=== PATIENT | female | born 1940 | race Caucasian/White ===

== ENCOUNTER 2016-12-27 13:08 | Inpatient (IN) | payer MEDICARE, OTHER ==
--- NOTE | 2016-12-27 13:23 | ER Document Report ---
ED Medical Screen (RME) - General Stated Complaint: STOMACH PAIN Notes: 76 yo female c/o left lower abdominal pain. pt has hx/o diverticulitis. c/o pain x 1 week but got worse 3 days ago. no n/v. + diarrhea. not tolerating po. abdomen soft, diffuse tenderness with guarding. pt is hypotensive, 79/46 TRAVEL OUTSIDE OF THE [place] IN LAST 30 DAYS: No
[2016-12-27 13:56] LABS: ABSOLUTE LYMPHOCYTES (AUTO) 1.2 10^3/uL (0.5-4.7); ABSOLUTE MONOCYTES (AUTO) 0.9 10^3/uL (0.1-1.4); ABSOLUTE NEUT (AUTO) 13.9 10^3/uL (1.7-8.2); BASOPHILS % (AUTO) 0.3 % (0-2); EOSINOPHILS % (AUTO) 0.2 % (0-6); HEMATOCRIT 43.1 % (36.0-47.0); HEMOGLOBIN 14.7 g/dL (12.0-15.5); LYMPHOCYTES % (AUTO) 7.3 % (13-45); MEAN CORPUSCULAR HEMOGLOBIN 29.5 pg (27.0-33.4); MEAN CORPUSCULAR HGB CONC 34.1 g/dL (32.0-36.0); MEAN CORPUSCULAR VOLUME 86 fl (80-97); MONOCYTES % (AUTO) 5.5 % (3-13); RED BLOOD COUNT 4.98 10^6/uL (3.72-5.28); RED CELL DISTRIBUTION WIDTH 14.4 % (11.5-14.0); SEGMENTED NEUTROPHILS % (AUTO) 86.7 % (42-78); WHITE BLOOD COUNT 16.1 10^3/uL (4.0-10.5)
[2016-12-27 14:15] LABS: ALANINE AMINOTRANSFERASE 31 U/L (9-52); ALBUMIN 4.2 g/dL (3.5-5.0); ALKALINE PHOSPHATASE 85 U/L (38-126); ANION GAP 16 (5-19); ASPARTATE AMINO TRANSFERASE 23 U/L (14-36); BILIRUBIN,TOTAL 1.4 mg/dL (0.2-1.3); BLOOD UREA NITROGEN 16 mg/dL (7-20); CALCIUM 10.1 mg/dL (8.4-10.2); CARBON DIOXIDE 27 mmol/L (22-30); CHLORIDE 95 mmol/L (98-107); CREATININE RESULT 1.28 mg/dL (0.52-1.25); GLUCOSE 121 mg/dL (75-110); LIPASE 60.7 U/L (23-300); POTASSIUM 3.8 mmol/L (3.6-5.0); SODIUM 138.1 mmol/L (137-145); TOTAL PROTEIN 7.5 g/dL (6.3-8.2)
[2016-12-27] MEDS ORDERED: NORMAL SALINE 1000 ML 1,000 ML IV ONE (14:26)
--- NOTE | 2016-12-27 14:27 | ER Document Report ---
ED General - General Time seen by provider: 14:30 Mode of Arrival: Wheelchair Information source: Patient, Parent TRAVEL OUTSIDE OF THE [place] IN LAST 30 DAYS: No - HPI Onset: Other - see HPI notes Associated symptoms: Diarrhea. denies: Nausea, Vomiting <NIKO MERCER - Last Filed: 12/27/16 20:10> <FRANCISCO MACIEL - Last Filed: 01/03/17 22:39> - General Chief Complaint: Abdominal Pain Stated Complaint: STOMACH PAIN Notes: Patient is a 76-year-old female presents to the emergency department with complaints of abdominal pain. Patient states that her pain started about 2-3 days ago. Patient states she has a history of diverticulitis which is waxing and waning; patient states this type of pain is different from her diverticulitis. Patient states her pain is in left side of her abdomen and goes into the middle of her abdomen. Patient also complains of some diarrhea. Patient states that she takes medications for hypertension however her blood pressure is very hypotensive today. Patient states she has had a lack of appetite and fluids. Patient has history of appendectomy, cholecystectomy, hysterectomy, and partial removal of her small intestine due to a bacterial infection with a blockage; patient states the surgery was done about 5 years ago in [place]. (NIKO MERCER) - Related Data Allergies/Adverse Reactions: codeine Allergy (Verified 12/27/16 13:22) pseudoephedrine [From Sudafed] Allergy (Verified 12/27/16 13:22) Home Medications: Current Home Medications Atenolol 50 mg PO DAILY 12/28/16 [History] Cetirizine HCl [Zyrtec] 10 mg PO DAILY PRN 12/28/16 [History] Cyanocobalamin (Vitamin B-12) [Vitamin B-12 500 mcg Tablet] 500 mcg PO DAILY 07/08 [History] Duloxetine HCl [Cymbalta] 60 mg PO DAILY 12/28/16 [History] Ezetimibe [Zetia 10 mg Tablet] 10 mg PO DAILY 12/28/16 [History] Gabapentin [Neurontin] 800 mg PO TID 12/28/16 [History] Hydrochlorothiazide [Hydrodiuril 12.5 mg Capsule] 12.5 mg PO DAILY 12/28/16 [ History] Ibuprofen [Motrin 600 mg Tablet] 600 mg PO TID PRN 12/28/16 [History] Levothyroxine Sodium [Synthroid] 137 mcg PO DAILY 12/28/16 [History] Losartan Potassium [Cozaar 100 mg Tablet] 100 mg PO DAILY 12/28/16 [History] Omeprazole 40 mg PO DAILY PRN 12/28/16 [History] Simvastatin [Zocor 20 mg Tablet] 20 mg PO DAILY 12/28/16 [History] Past Medical History - General Information source: Patient, Relative - spouse - Social History Smoking Status: Current Every Day Smoker Family History: None Patient has suicidal ideation: No Patient has homicidal ideation: No - Past Medical History Cardiac Medical History: Reports: Hx Hypertension Musculoskeltal Medical History: Reports Other - Neuropathy Past Surgical History: Reports: Hx Appendectomy, Hx Bowel Surgery - 27 inches of the small intestine was removed due to bacterial infection, Hx Cholecystectomy, Hx Hysterectomy <NIKO MERCER - Last Filed: 12/27/16 20:10> Review of Systems - Review of Systems Constitutional: No symptoms reported EENT: No symptoms reported Cardiovascular: No symptoms reported Respiratory: No symptoms reported Gastrointestinal: See HPI, Abdominal pain, Diarrhea, Poor appetite, Poor fluid intake. denies: Nausea, Vomiting Genitourinary: No symptoms reported Female Genitourinary: No symptoms reported Musculoskeletal: No symptoms reported Skin: No symptoms reported Hematologic/Lymphatic: No symptoms reported Neurological/Psychological: No symptoms reported -: Yes All other systems reviewed and negative <NIKO MERCER - Last Filed: 12/27/16 20:10> Physical Exam - Vital signs Interpretation: Hypotensive - General General appearance: Alert, Other - Appears uncomfortable In distress: Mild - HEENT Head: Normocephalic, Atraumatic Eyes: Normal Pupils: PERRL Mucous membranes: Moist - Respiratory Respiratory status: No respiratory distress Chest status: Nontender Breath sounds: Normal Chest palpation: Normal - Cardiovascular Rhythm: Regular Heart sounds: Normal auscultation Murmur: No - Abdominal Inspection: Normal - no palpable bruits Distension: No distension Bowel sounds: Hypoactive - Diminished bowel sounds Tenderness: Tender - Mild tenderness to the lower abdomen no rebound, no guarding, no rigidity Organomegaly: No organomegaly - Back Back: Normal, Nontender - Extremities General upper extremity: Normal inspection, Normal ROM, Normal strength General lower extremity: Normal inspection, Normal ROM, Normal strength, Other - good perfusion, bilateral equal pedis pulses - Neurological Neuro grossly intact: Yes Cognition: Normal Orientation: AAOx4 Romance Coma Scale Eye Opening: Spontaneous Best Coma Scale Verbal: Oriented Best Coma Scale Motor: Obeys Commands Romance Coma Scale Total: 15 Speech: Normal - Psychological Associated symptoms: Normal affect, Normal mood - Skin Skin Temperature: Warm Skin Moisture: Dry <NIKO MERCER - Last Filed: 12/27/16 20:10> Course - Laboratory Result Diagrams: 12/27/16 13:35 12/27/16 13:35 <NIKO MERCER - Last Filed: 12/27/16 20:10> - Laboratory Result Diagrams: 12/30/16 06:18 12/30/16 06:18 <FRANCISCO MACIEL - Last Filed: 01/03/17 22:39> - Re-evaluation Re-evalutation: 12/27/16 14:43 I personally performed the services described in the documentation, reviewed and edited the documentation which was dictated to my scribe in my presence, and it accurately records my words and actions. Patient immediately seen and assessed at the bedside for lower abdominal pain hypotensive in the triage area. Blood pressure at the bedside is 92-93 significantly concerned patient has decreased bowel sounds with a history of part of her colon removed for obstruction in [place] 5-6 years ago. In addition to that patient's pain in the lower abdomen with guarding concerning for abdominal aortic aneurysm. Ordered a stat IV stat CT of the abdomen and pelvis to rule out abdominal aortic aneurysm and/or mass obstruction. 12/27/16 17:00 immediately arrived back from CT CT read is acute perforation. Patient examined at the bedside blood pressure 117/[address] Hester at 1700 was financial services consultant for surgery and is going to come see the patient. I ordered Invanz 12/27/16 18:28 Surgeon came and spoke with the patient and the family plan is to admit IV antibiotics and close observation not immediate surgical intervention (FRANCISCO MACIEL) - Vital Signs Vital signs: Temp Pulse Resp BP Pulse Ox 98.9 F 60 14 79/46 L 100 12/30/16 13:10 12/30/16 13:10 12/30/16 13:10 12/30/16 13:10 12/30/16 13:10 - Laboratory Laboratory results interpreted by me: 12/27/16 12/27/16 12/27/16 13:35 13:35 17:20 WBC 16.1 H RDW 14.4 H Seg Neutrophils % 86.7 H Lymphocytes % 7.3 L Absolute Neutrophils 13.9 H Chloride 95 L Creatinine 1.28 H Est GFR ( Amer) 49 L Est GFR (Non-Af Amer) 41 L Glucose 121 H Total Bilirubin 1.4 H Urine Protein 30 H Urine Glucose (UA) 50 H Urine Blood SMALL H Discharge <NIKO MERCER - Last Filed: 12/27/16 20:10> - Discharge Admitting Provider: Surgicalist Unit Admitted: Surgical Floor <FRANCISCO MACIEL - Last Filed: 01/03/17 22:39> - Discharge Clinical Impression: acute diverticular perforation, hypotension resolved Disposition: HOME, SELF-CARE Scribe Documentation - Scribe Written by Scribe:: Niko Mercer 12/27/16 16:45 acting as scribe for :: John <NIKO MERCER - Last Filed: 12/27/16 20:10>
[2016-12-27] MEDS ORDERED: FENTANYL CITRATE INJ/PF 100 MCG/2 ML AMPUL IV ONE (14:43)
[2016-12-27] MEDS ORDERED: ERTAPENEM SODIUM INJ 1 GM VIAL IV ONE (16:59)
[2016-12-27] MEDS ORDERED: ONDANSETRON HCL INJ/PF 4 MG/2 ML SDV IV PRN (17:35)
[2016-12-27] MEDS ORDERED: NORMAL SALINE 1000 ML 1,000 ML IV PRN (17:35)
[2016-12-27] MEDS ORDERED: HYDROMORPHONE HCL INJ/PF 2 MG/ML AMPULE IV PRN ×3 (17:44→17:49)
[2016-12-27 18:03] LABS: AMORPHOUS SEDIMENT,URINE TRACE /HPF; APPEARANCE,URINE SLIGHTLY-CLOUDY; BILIRUBIN,URINE NEGATIVE (NEGATIVE); GLUCOSE, URINE 50 mg/dL (NEGATIVE); KETONES,URINE NEGATIVE (NEGATIVE); LEUKOCYTE ESTERASE,URINE NEGATIVE (NEGATIVE); NITRITE,URINE NEGATIVE (NEGATIVE); PROTEIN,URINE 30 mg/dL (NEGATIVE); URINE SPECIFIC GRAVITY 1.038; UROBILINOGEN,URINE NEGATIVE mg/dL (<2.0)
[2016-12-27] MEDS: PIPERACILLIN SODIUM/TAZOBACTAM 3.375 GM in NORMAL SALINE 100 ML IV SCH (23:00)
[2016-12-27] MEDS: PANTOPRAZOLE SODIUM 40 MG VIAL IV SCH (23:02)
[2016-12-27] MEDS ORDERED: ATENOLOL 50 MG TABLET PO ONE (23:45)
--- NOTE | 2016-12-28 01:18 | HISTORY AND PHYSICAL E ---
History and Physical NAME: CARRI BUSH : 1940 AGE: 76Y ADMITTED: 12/27/2016 ROOM: ED60 REASON FOR ADMISSION: Abdominal pain. HISTORY OF PRESENT ILLNESS: The patient is a 76-year-old female who presents with a 3-day history of pain in the left lower quadrant. She has had pain in this region in the past which she was diagnosed clinically with diverticulitis and treated with oral antibiotics. This was many years ago. She has had a previous colonoscopy within the last 7 years which did reveal polyps. I do not have the exact report. She has not had any diarrhea or constipation but has been nauseated and not drinking any liquids today prior to admission. The patient's pain is in the left lower quadrant and does not involve any other portion of her abdomen. She has had some chills but has not measured her temperature. Because of the abdominal pain, she comes into the emergency room to be evaluated. PAST SURGICAL HISTORY: 1. Appendectomy. 2. Cholecystectomy. 3. Hysterectomy. 4. Exploratory laparotomy and partial small bowel resection secondary to obstruction. ALLERGIES: 1. TYLENOL. 2. CODEINE. 3. HYDROCODONE. 4. MORPHINE. 5. OXYCODONE. 6. PSEUDOEPHEDRINE. 7. SULFA. 8. SEPTRA. 9. SHELLFISH. CURRENT MEDICATIONS: 1. Losartan/hydrochlorothiazide. 2. Ibuprofen. 3. Cymbalta. 4. Atenolol. 5. Synthroid. 6. Gabapentin. 7. Omeprazole. 8. Cetirizine. 9. Vytorin. PAST MEDICAL HISTORY: 1. Hypertension. 2. Hypothyroidism. 3. Peripheral neuropathy. 4. Gastroesophageal reflux. 5. Degenerative joint disease. SOCIAL HISTORY: The patient lives with her . FAMILY HISTORY: Noncontributory. REVIEW OF SYSTEMS: A complete review of systems is obtained, pertinent positives are: GASTROINTESTINAL: Abdominal pain. CONSTITUTIONAL: Not feeling well and chills. A 12-point review of systems was obtained with pertinent positives discussed and all others being negative. PHYSICAL EXAMINATION: VITAL SIGNS: Temperature is 97.5. Heart rate 87. The patient's initial blood pressure was 80/45. She was given IV fluids hydrated with her blood pressure coming up to 125/68. Respiration rate 18. GENERAL: The patient is lying in bed. When she does move, she does have complaints of pain in the left lower quadrant. HEENT: Eyes nonicteric. NECK: No lymphadenopathy. HEART: Regular. LUNGS: Clear. BACK: Nontender. ABDOMEN: Soft. Tender in the left lower quadrant. She does not have any tenderness anywhere else in the abdominal area. She does have a reducible ventral hernia. EXTREMITIES: No edema or cyanosis. NEUROLOGICAL: The patient appears to be neurologically intact without any deficit. PSYCHOLOGICAL: The patient is coherent, cooperative, and appears to answer questions fully. DIAGNOSTIC DATA: White blood cell count is 16,000, platelet of 281,000. Sodium 138, creatinine 1.3, total bilirubin 1.4, glucose 121. CT scan of the abdomen and pelvis shows inflammation in the descending and proximal sigmoid colon. There is a small focus of nondependent extraluminal gas with no abscess being present. ASSESSMENT: 1. Left lower quadrant abdominal pain secondary to complicated diverticular disease with small area of perforation. I have discussed the different options with the patient including surgical options which would entail a Vaca's procedure or colostomy and a rectal stump. She did respond to fluid, is no longer hypotensive. However, I stated that my feeling is surgery may be the best option for her. The other option I think is still viable but less likely to succeed is a trial of IV antibiotics. If this should fail, then she knows that she would need to undergo a Vaca's procedure. She wishes to do a limited trial of IV antibiotics to see if she will improve on this. 2. Ventral hernia that is reducible at the current time. 3. Hypotension. She was hypotensive on admission, but currently blood pressure is fine with IV hydration. 4. Mild renal insufficiency. 5. Hypothyroidism. 6. Peripheral neuropathy. 7. Gastroesophageal reflux disease. PLAN: 1. The patient will be admitted to the hospital. 2. NPO. 3. IV fluids. 4. IV antibiotics. 5. Follow up abdominal exam. DICTATING PHYSICIAN: ANG BUTLER M.D. [id number] PHY#: [id number] ID: [id number] JOB#: [id number] ACCT: [id number] cc:ELIE KIM M.D. ANG BUTLER M.D. >
[2016-12-28] MEDS: PIPERACILLIN SODIUM/TAZOBACTAM 3.375 GM in NORMAL SALINE 100 ML IV SCH ×4 (02:39→21:11)
[2016-12-28 05:46] LABS: ABSOLUTE MONOCYTES (AUTO) 0.8 10^3/uL (0.1-1.4); ABSOLUTE NEUT (AUTO) 8.8 10^3/uL (1.7-8.2); BASOPHILS % (AUTO) 0.3 % (0-2); EOSINOPHILS % (AUTO) 0.3 % (0-6); HEMATOCRIT 37.1 % (36.0-47.0); LYMPHOCYTES % (AUTO) 9.3 % (13-45); MEAN CORPUSCULAR HEMOGLOBIN 29.4 pg (27.0-33.4); MEAN CORPUSCULAR HGB CONC 34.2 g/dL (32.0-36.0); MEAN CORPUSCULAR VOLUME 86 fl (80-97); MONOCYTES % (AUTO) 7.1 % (3-13); RED BLOOD COUNT 4.33 10^6/uL (3.72-5.28); RED CELL DISTRIBUTION WIDTH 14.1 % (11.5-14.0); WHITE BLOOD COUNT 10.6 10^3/uL (4.0-10.5)
[2016-12-28 05:47] LABS: HEMOGLOBIN 12.7 g/dL (12.0-15.5)
[2016-12-28 05:49] LABS: ALANINE AMINOTRANSFERASE 30 U/L (9-52); ALBUMIN 3.3 g/dL (3.5-5.0); ALKALINE PHOSPHATASE 76 U/L (38-126); ANION GAP 9 (5-19); ASPARTATE AMINO TRANSFERASE 22 U/L (14-36); BLOOD UREA NITROGEN 15 mg/dL (7-20); CALCIUM 8.9 mg/dL (8.4-10.2); CARBON DIOXIDE 26 mmol/L (22-30); CHLORIDE 103 mmol/L (98-107); CREATININE RESULT 0.74 mg/dL (0.52-1.25); GLUCOSE 96 mg/dL (75-110); POTASSIUM 3.6 mmol/L (3.6-5.0); TOTAL PROTEIN 5.9 g/dL (6.3-8.2)
--- NOTE | 2016-12-28 08:26 | PDOC PROGRESS REPORT ---
Subjective Progress Note for:: 12/28/16 Subjective:: Feels better. Mild left lower quadrant abdominal pain. Definitely improved. Physical Exam Vital Signs: Temp Pulse Resp BP Pulse Ox 99.5 F 96 16 124/66 96 12/28/16 05:00 12/28/16 05:00 12/28/16 05:00 12/28/16 05:00 12/28/16 05:00 Intake & Output 12/27/16 12/28/16 12/29/16 06:59 06:59 06:59 Intake Total 0 Balance 0 Weight 92.3 kg General appearance: PRESENT: no acute distress, cooperative Respiratory exam: PRESENT: clear to auscultation magi Cardiovascular exam: PRESENT: RRR GI/Abdominal exam: PRESENT: other - Soft, nondistended, very mild left lower quadrant abdominal tenderness without peritoneal signs. Extremities exam: PRESENT: other - No swelling and no tenderness Results Laboratory Results: 12/28/16 04:42 12/28/16 04:42 12/28/16 12/28/16 04:42 04:42 WBC 10.6 H RBC 4.33 Hgb 12.7 Hct 37.1 MCV 86 MCH 29.4 MCHC 34.2 RDW 14.1 H Plt Count 214 Seg Neutrophils % 83.0 H Lymphocytes % 9.3 L Monocytes % 7.1 Eosinophils % 0.3 Basophils % 0.3 Absolute Neutrophils 8.8 H Absolute Lymphocytes 1.0 Absolute Monocytes 0.8 Absolute Eosinophils 0.0 Absolute Basophils 0.0 Sodium 138.0 Potassium 3.6 Chloride 103 Carbon Dioxide 26 Anion Gap 9 BUN 15 Creatinine 0.74 Est GFR ( Amer) > 60 Est GFR (Non-Af Amer) > 60 Glucose 96 Calcium 8.9 Total Bilirubin 1.0 AST 22 ALT 30 Alkaline Phosphatase 76 Total Protein 5.9 L Albumin 3.3 L Impressions: Abdomen/Pelvis CT 12/27/16 14:42 IMPRESSION: Sigmoid diverticulitis. Suspect perforated diverticulum. Surgical consultation is recommended. Assessment & Plan - Diagnosis (1) Perforation of sigmoid colon due to diverticulitis Is this a current diagnosis for this admission?: YesPlan: Improving with conservative measures. Will try clear liquids today. Possible discharge the patient home tomorrow with by mouth antibiotics.
[2016-12-28] MEDS: PANTOPRAZOLE SODIUM 40 MG VIAL IV SCH ×2 (09:13→21:10)
[2016-12-28] MEDS: CETIRIZINE 10 MG TABLET PO SCH (09:13)
[2016-12-28] MEDS: ATENOLOL 50 MG TABLET PO SCH (09:14)
[2016-12-28] MEDS: DULOXETINE HCL 30 MG CAPSULE.DR PO SCH (09:15)
[2016-12-28] MEDS: GABAPENTIN 400 MG CAPSULE PO SCH ×3 (09:15→17:05)
[2016-12-29] MEDS: NORMAL SALINE 1000 ML 1,000 ML IV PRN (02:17)
[2016-12-29] MEDS: PIPERACILLIN SODIUM/TAZOBACTAM 3.375 GM in NORMAL SALINE 100 ML IV SCH ×4 (02:18→21:44)
[2016-12-29 05:25] LABS: ABSOLUTE EOSINOPHILS # (AUTO) 0.1 10^3/uL (0.0-0.6); ABSOLUTE LYMPHOCYTES (AUTO) 1.4 10^3/uL (0.5-4.7); ABSOLUTE MONOCYTES (AUTO) 0.7 10^3/uL (0.1-1.4); ABSOLUTE NEUT (AUTO) 7.2 10^3/uL (1.7-8.2); BASOPHILS % (AUTO) 0.2 % (0-2); EOSINOPHILS % (AUTO) 1.2 % (0-6); HEMATOCRIT 35.6 % (36.0-47.0); HEMOGLOBIN 12.4 g/dL (12.0-15.5); HGB HCT DIFFERENCE 1.6; LYMPHOCYTES % (AUTO) 15.4 % (13-45); MEAN CORPUSCULAR HEMOGLOBIN 29.5 pg (27.0-33.4); MEAN CORPUSCULAR HGB CONC 34.8 g/dL (32.0-36.0); MEAN CORPUSCULAR VOLUME 85 fl (80-97); RED BLOOD COUNT 4.21 10^6/uL (3.72-5.28); RED CELL DISTRIBUTION WIDTH 14.1 % (11.5-14.0); SEGMENTED NEUTROPHILS % (AUTO) 76.2 % (42-78); WHITE BLOOD COUNT 9.4 10^3/uL (4.0-10.5)
[2016-12-29] MEDS: ATENOLOL 50 MG TABLET PO SCH (09:18)
[2016-12-29] MEDS: CETIRIZINE 10 MG TABLET PO SCH (09:18)
[2016-12-29] MEDS: PANTOPRAZOLE SODIUM 40 MG VIAL IV SCH ×2 (09:18→21:44)
[2016-12-29] MEDS: GABAPENTIN 400 MG CAPSULE PO SCH ×3 (09:18→17:06)
[2016-12-29] MEDS: DULOXETINE HCL 30 MG CAPSULE.DR PO SCH (09:19)
--- NOTE | 2016-12-29 11:57 | PDOC PROGRESS REPORT ---
Subjective Progress Note for:: 12/29/16 Subjective:: Feeling better to day less pain , no nausea Physical Exam Vital Signs: Temp Pulse Resp BP Pulse Ox 98.6 F 69 19 138/63 H 95 12/29/16 00:34 12/29/16 00:34 12/29/16 00:34 12/29/16 00:34 12/29/16 00:34 Intake & Output 12/28/16 12/29/16 12/30/16 06:59 06:59 06:59 Intake Total 0 2120 Balance 0 2120 Weight 92.3 kg 93.3 kg GI/Abdominal exam: PRESENT: other - Tenderness left lower abdomen No rebound Results Laboratory Results: 12/29/16 04:53 12/28/16 04:42 12/29/16 04:53 WBC 9.4 RBC 4.21 Hgb 12.4 Hct 35.6 L MCV 85 MCH 29.5 MCHC 34.8 RDW 14.1 H Plt Count 238 Seg Neutrophils % 76.2 Lymphocytes % 15.4 Monocytes % 7.0 Eosinophils % 1.2 Basophils % 0.2 Absolute Neutrophils 7.2 Absolute Lymphocytes 1.4 Absolute Monocytes 0.7 Absolute Eosinophils 0.1 Absolute Basophils 0.0 Impressions: Abdomen/Pelvis CT 12/27/16 14:42 IMPRESSION: Sigmoid diverticulitis. Suspect perforated diverticulum. Surgical consultation is recommended. Assessment & Plan - Plan Summary Plan Summary: Conservative management Continue monitoring and IV antibiotics
[2016-12-30] MEDS: NORMAL SALINE 1000 ML 1,000 ML IV PRN (00:02)
[2016-12-30] MEDS: PIPERACILLIN SODIUM/TAZOBACTAM 3.375 GM in NORMAL SALINE 100 ML IV SCH ×2 (03:21→09:34)
[2016-12-30 07:26] LABS: ABSOLUTE EOSINOPHILS # (AUTO) 0.1 10^3/uL (0.0-0.6); ABSOLUTE LYMPHOCYTES (AUTO) 1.2 10^3/uL (0.5-4.7); ABSOLUTE MONOCYTES (AUTO) 0.6 10^3/uL (0.1-1.4); ABSOLUTE NEUT (AUTO) 5.7 10^3/uL (1.7-8.2); BASOPHILS % (AUTO) 0.5 % (0-2); EOSINOPHILS % (AUTO) 1.3 % (0-6); HEMATOCRIT 34.7 % (36.0-47.0); HGB HCT DIFFERENCE 1.3; LYMPHOCYTES % (AUTO) 15.8 % (13-45); MEAN CORPUSCULAR HEMOGLOBIN 29.5 pg (27.0-33.4); MEAN CORPUSCULAR HGB CONC 34.7 g/dL (32.0-36.0); MEAN CORPUSCULAR VOLUME 85 fl (80-97); MONOCYTES % (AUTO) 7.5 % (3-13); RED BLOOD COUNT 4.08 10^6/uL (3.72-5.28); RED CELL DISTRIBUTION WIDTH 14.3 % (11.5-14.0); SEGMENTED NEUTROPHILS % (AUTO) 74.9 % (42-78); WHITE BLOOD COUNT 7.6 10^3/uL (4.0-10.5)
[2016-12-30 07:48] LABS: ANION GAP 11 (5-19); BLOOD UREA NITROGEN 8 mg/dL (7-20); CARBON DIOXIDE 25 mmol/L (22-30); CHLORIDE 103 mmol/L (98-107); GLUCOSE 101 mg/dL (75-110); POTASSIUM 3.3 mmol/L (3.6-5.0); SODIUM 138.8 mmol/L (137-145)
[2016-12-30] MEDS: ATENOLOL 50 MG TABLET PO SCH (09:34)
[2016-12-30] MEDS: DULOXETINE HCL 30 MG CAPSULE.DR PO SCH (09:34)
[2016-12-30] MEDS: CETIRIZINE 10 MG TABLET PO SCH (09:34)
[2016-12-30] MEDS: GABAPENTIN 400 MG CAPSULE PO SCH (09:34)
[2016-12-30] MEDS: PANTOPRAZOLE SODIUM 40 MG VIAL IV SCH (09:34)
[2016-12-30 13:13] VITALS: BP 79/46
--- NOTE | 2016-12-30 15:48 | DISCHARGE SUMMARY E ---
Discharge Summary NAME: CARRI BUSH : 1940 AGE: 76Y ADMITTED: 12/27/2016 DISCHARGED: 12/30/2016 ADMITTING DIAGNOSIS: Acute diverticulitis with microperforation. DISCHARGE DIAGNOSIS: Acute diverticulitis with microperforation. HOSPITAL COURSE: No operative interventions were necessary. She treated conservatively with IV antibiotics and after starting the IV antibiotics, started feeling better. I have seen her the last 2 days, feeling progressively better and better. Today, the patient has no tenderness, no pain. Abdominal exam was completely benign. It resolved completely at this time. I am sending her home with p.o. antibiotics of Levaquin and Flagyl and we advised her to follow up with primary care and the surgical clinic in the office, and then to have a colonoscopy and then followed, but she may need a laparoscopic colon resection, which was discussed with the patient and explained to her. We explained to her about the importance of following up in office and also with primary care. TIME SPENT: I spent almost 30 minutes explaining the need for the surgery and the colonoscopy. More than or most of 50% of the time spent for counseling and coordinating further care. DICTATING PHYSICIAN: CUAUHTEMOC WHEATLEY M.D. [id number] PHY#: [id number] ID: [id number] JOB#: [id number] ACCT: [id number] cc:Ben SHOEMAKER M.D. TRINA DEAL, FNP > [facility]
== END 2016-12-30 14:04 | disposition home or self-care (01) | DRG 392 ==
LOC: ER 13:08 → EH 17:35 → UNDOADMIN 18:17 → EH 18:17 → 5 12-28 01:35
PROVIDERS: ATTEND Colon & Rectal Surgery
DX: K57.20 Diverticulitis of large intestine with perforation and abscess without bleeding (principal); I10 Essential (primary) hypertension; M19.90 Unspecified osteoarthritis, unspecified site; K21.9 Gastro-esophageal reflux disease without esophagitis; G62.9 Polyneuropathy, unspecified; E03.9 Hypothyroidism, unspecified; K43.9 Ventral hernia without obstruction or gangrene; I95.9 Hypotension, unspecified; Z86.010 Personal history of colon polyps; Z90.49 Acquired absence of other specified parts of digestive tract; Z90.710 Acquired absence of both cervix and uterus; Z88.6 Allergy status to analgesic agent; Z88.2 Allergy status to sulfonamides; Z91.013 Allergy to seafood; Z88.8 Allergy status to other drugs, medicaments and biological substances; Z79.899 Other long term (current) drug therapy
CPT/HCPCS: 36415; 74177; 80048; 80053; 81001; 83690; 85025; 87040; 96361; 96365; 96375; 99285; J1170; J1335; J2543; J3010; J7030; S0164

== ENCOUNTER 2017-02-01 08:19 | Day surgery (SDC) | payer MEDICARE, OTHER ==
[~2017-02-01 08:19] MED LIST: EPINEPHRINE INJ 1 MG/10 ML DISP.SYRIN ONE; FENTANYL CITRATE INJ/PF 100 MCG/2 ML AMPUL ONE; FLUMAZENIL INJ 0.5 MG/5 ML VIAL IV ONE; GLUCAGON,HUMAN RECOMB 1 MG INJ ONE; GLYCOPYRROLATE INJ 0.4 MG/2 ML VIAL ONE; NALOXONE HCL INJ/PF 0.4 MG/1 ML SDV ONE; ONDANSETRON HCL INJ/PF 4 MG/2 ML SDV ONE
[2017-02-01] MEDS: MIDAZOLAM 2 MG/2 ML INJ ONE ×2 (08:46→08:54)
--- NOTE | 2017-02-01 09:31 | Operative Report ---
Operative Report DATE OF SURGERY: 02/01/17 PREOPERATIVE DIAGNOSIS: History of sigmoid colon perforation POSTOPERATIVE DIAGNOSIS: Scattered sigmoid diverticulosis OPERATION: Total colonoscopy to cecum with photo documentation SURGEON: SHREITA MORA ANESTHESIA: Moderate Sedation TISSUE REMOVED OR ALTERED: None COMPLICATIONS: None ESTIMATED BLOOD LOSS: scant INTRAOPERATIVE FINDINGS: See below PROCEDURE: Obtaining informed consent the patient was taken from the preoperative holding area to the main endoscopy suite where monitoring devices were attached to the patient. Plan and surgical timeout were conducted The patient was placed in the left lateral decubitus position with knees to chest. A perianal examination was performed. There was no visible or palpable anorectal pathology. Sphincter tone was felt to be normal. Small external skin tags. The flexible adult colonoscope was advanced through the anal rectal canal, all the way to the cecum. Utilization of the cecum was achieved and the ileocecal valve, the appendiceal orifice and transillumination of the anterior abdominal wall. This was an excellent study on the well-prepped bowel. The colonoscope was withdrawn slowly and methodically checked and the mucosa carefully. There was no evidence of tumor, stricture, bleeding or polyp. There were scattered diverticulosis disease of the sigmoid colon. No evidence of stenosis or inflammation. The scope was slowly withdrawn through the anal rectal canal. Complete visualization of the rectum was achieved with photodocumentation. The scope was withdrawn to the patient's anus. The patient tolerated the procedure well and was taken to the recovery area in stable condition. Per surveillance guidelines, patient will be a candidate gauze follow-up colonoscopy in 10 years.
--- NOTE | 2017-02-01 09:32 | PDOC DISCHARGE SUMMARY ---
Discharge Summary (SDC) - Discharge Final Diagnosis: Sigmoid diverticulosis Date of Surgery: 02/01/17 Discharge Date: 02/01/17 Condition: Good Treatment or Instructions: [facility] [place] [id number] POST ENDOSCOPY DISCHARGE INSTRUCTIONS 1. Diet: Start clear liquids that a regular diet as tolerated. 2. Resume all preoperative medications. All oral anticoagulants and aspirins can be resumed 24 hours after procedure. 3. If a polypectomy was performed some bleeding per rectum may occur. This should stop within 3 days. If not, please contact the office. 4. If you had a colonoscopy you may experience some bloating and delayed return of normal bowel function for several days, your regular bowel movement pattern should resume within a week. 5. Please contact [facility] at to make an appointment with Dr. Ritchie for 1 to 3 weeks following procedure. 6. If you have any questions or concerns regarding your care,treatment plan or follow up, please contact our office. 7. Per clinical guidelines we recommend you undergo a repeat colonoscopy in 10 years. Discharge Diet: As Tolerated Discharge Activity: Activity As Tolerated Home Care Assistance: None Needed Report the Following to Your Physician Immediately: Shortness of Breath, Increase in Pain, Fever over 101 Degrees
[2017-02-01 10:31] VITALS: BP 101/65
== END 2017-02-01 10:30 | disposition home or self-care (01) ==
LOC: END 08:19
PROVIDERS: ATTEND Surgery
PROC: 0DJD8ZZ Inspection of Lower Intestinal Tract, Via Natural or Artificial Opening Endoscopic (ICD-10-PCS; principal; 2017-02-01 08:30)
DX: K57.92 Diverticulitis of intestine, part unspecified, without perforation or abscess without bleeding (principal); K57.30 Diverticulosis of large intestine without perforation or abscess without bleeding; E03.9 Hypothyroidism, unspecified; K43.9 Ventral hernia without obstruction or gangrene; G62.9 Polyneuropathy, unspecified; K21.9 Gastro-esophageal reflux disease without esophagitis; M19.90 Unspecified osteoarthritis, unspecified site; I10 Essential (primary) hypertension; F17.210 Nicotine dependence, cigarettes, uncomplicated; Z79.899 Other long term (current) drug therapy; Z88.5 Allergy status to narcotic agent; Z88.8 Allergy status to other drugs, medicaments and biological substances
CPT/HCPCS: 45378; J2250; J3010; J2405; J0171; J1610; J2310; J3490

== ENCOUNTER 2017-05-15 07:30 | Day surgery (SDC) | payer MEDICARE, OTHER ==
[~2017-05-15 07:30] MED LIST changes: +BUPIVACAINE HCL 0.75% INJ/PF (7.5 MG/1 ML) 10 ML SDV OS PRN; +CHONDR SU A NA/HYALUR INTRAOC KIT (SURGICARE) ONE; +DIPHENHYDRAMINE HCL 50 MG/ML VIAL ONE; -EPINEPHRINE INJ 1 MG/10 ML DISP.SYRIN ONE; -FENTANYL CITRATE INJ/PF 100 MCG/2 ML AMPUL ONE; -FLUMAZENIL INJ 0.5 MG/5 ML VIAL IV ONE; -GLUCAGON,HUMAN RECOMB 1 MG INJ ONE; -GLYCOPYRROLATE INJ 0.4 MG/2 ML VIAL ONE; +KETOROLAC TROMETHAMINE 0.45% 4 DROP/0.4 ML DROPERETTE OS PRN; +LIDOCAINE 4% INJ/PF (40 MG/ML) 5 ML AMPUL OS PRN; +MIDAZOLAM 2 MG/2 ML INJ ONE; -NALOXONE HCL INJ/PF 0.4 MG/1 ML SDV ONE; +NEOSTIGMINE METHYLSULFATE 10 MG/10 ML VIAL ONE; -ONDANSETRON HCL INJ/PF 4 MG/2 ML SDV ONE; +PHENYLEPHRINE/KETOROLAC 1%-0.3% 4 ML VIAL ONE
[2017-05-15] MEDS: TETRACAINE HCL 0.5% OPH SOLN 0.6 ML DROPERETTE OS PRN ×2 (07:58→08:21)
[2017-05-15] MEDS: TROPICAMIDE 1% OPH SOLN 3 ML OS PRN ×3 (07:58→08:20)
[2017-05-15] MEDS: CYCLOPENTOLATE 0.2%/PHENYLEPHRINE 1% OPH SOLN 2 ML OS PRN ×3 (07:59→08:20)
[2017-05-15] MEDS: BESIFLOXACIN HCL 0.6% OPH SUSP 5 ML BOTTLE OS PRN ×3 (07:59→08:50)
--- NOTE | 2017-05-15 09:03 | [facility] DISCHARGE SUMMARY E ---
[facility] Discharge Summary NAME: CARRI BUSH AGE: 76Y ADMITTED: 05/15/2017 DISCHARGED: 05/15/2017 FINAL DIAGNOSIS: Cataract, left eye. HOSPITAL COURSE: The patient is a 76-year-old who underwent uneventful cataract extraction with intraocular lens implant, left eye, on 05/15/2017. She will be discharged to home. She was instructed to resume preoperative medications, to take Tylenol as needed for discomfort, to keep her eye shielded, to use Besivance, Durezol and Ilevro at 3 p.m. and 8 p.m., and to follow up in my office in 1 day. DICTATING PHYSICIAN: CARLOZ MARTINEZ M.D. [id number] PHY#: [id number] ID: [id number] JOB#: [id number] ACCT: [id number] cc:CARLOZ MARTINEZ M.D. >
--- NOTE | 2017-05-15 09:04 | [facility] OPERATIVE REPORT E ---
[facility] Operative Report NAME: CARRI BUSH AGE: 76Y DATE OF SURGERY: 05/15/2017 ROOM: PREOPERATIVE DIAGNOSIS: Cataract, left eye. POSTOPERATIVE DIAGNOSIS: Cataract, left eye. PROCEDURE PERFORMED: Phacoemulsification with posterior chamber intraocular lens, left eye. SURGEON: CARLOZ MARTINEZ M.D. ANESTHESIA: Topical with MAC. INDICATIONS FOR SURGERY: Difficulty reading captions on TV and road signs. Best corrected visual acuity 20/60. PROCEDURE: The patient was brought to the Operating Room and placed on the operative table. Following tetracaine drops, topical anesthesia was administered. This consisted of instrument wipe pledgets soaked in a solution of 4% Xylocaine mixed with 0.75% Marcaine in a 1:2 ratio. A 2 x 1 cm pledget was placed in the superior fornix. A 1 x 1 cm pledget was placed in the inferior fornix. The eye was patched shut for 5 minutes. The patch was removed. The eye was sterilely prepped and draped in the usual manner. Lid speculum was placed in the eye. The pledgets were removed and 4-0 black silk sutures were placed around the superior and the inferior rectus muscles to be used as traction. A conjunctival peritomy was made at the 10 o'clock position. Hemostasis was obtained with bipolar cautery. A posterior limbal groove was created using a crescent knife and dissected anteriorly towards the cornea. A sharp point blade was used to create a paracentesis site at the 2 o'clock position. A 2.4-mm keratome was used to enter the anterior chamber through the groove. Viscoelastic was injected into the anterior chamber. An anterior capsulotomy was performed using Utrata forceps in a capsulorrhexis fashion. Hydrodissection and hydrodelineation were performed. Phacoemulsification was performed in [id number] technique. A total of 57 seconds phaco time was used. Following this, the I/A unit was used to remove residual cortex. Viscoelastic was injected into the capsular bag. Intraocular lens model [id number], 19.0 diopters, serial number [id number], was placed in the capsular bag. The I/A unit was used to remove residual viscoelastic. The wound was seen to be watertight under high and low pressure, and no sutures were placed. The intraocular lens was well centered. The pressure was adjusted in the eye to normal pressure. The 4-0 black silk sutures and lid speculum were removed. The eye was shielded after Besivance drops were placed. The patient tolerated the procedure well and was sent to the Recovery Room in good condition. DICTATING PHYSICIAN: CARLOZ MARTINEZ M.D. [id number] PHY#: [id number] ID: [id number] JOB#: [id number] ACCT: [id number] cc:CARLOZ MARTINEZ M.D. >
== END 2017-05-15 09:40 | disposition home or self-care (01) ==
LOC: SC 07:30
PROVIDERS: ATTEND Ophthalmology
PROC: 08RK3JZ Replacement of Left Lens with Synthetic Substitute, Percutaneous Approach (ICD-10-PCS; principal; 2017-05-15 08:30)
DX: H25.813 Combined forms of age-related cataract, bilateral (principal); H16.223 Keratoconjunctivitis sicca, not specified as Sjogren's, bilateral; M19.90 Unspecified osteoarthritis, unspecified site; I10 Essential (primary) hypertension; K21.9 Gastro-esophageal reflux disease without esophagitis; E07.9 Disorder of thyroid, unspecified; F17.210 Nicotine dependence, cigarettes, uncomplicated; Z79.899 Other long term (current) drug therapy; Z79.1 Long term (current) use of non-steroidal anti-inflammatories (NSAID)
CPT/HCPCS: 66984; V2632; J2250; J3490 ×3; A9270; C9447; 142; J1200

== ENCOUNTER 2017-06-05 06:22 | Day surgery (SDC) | payer MEDICARE, OTHER ==
[~2017-06-05 06:22] MED LIST changes: +BUPIVACAINE HCL 0.75% INJ/PF (7.5 MG/1 ML) 10 ML SDV OD PRN; -BUPIVACAINE HCL 0.75% INJ/PF (7.5 MG/1 ML) 10 ML SDV OS PRN; -CHONDR SU A NA/HYALUR INTRAOC KIT (SURGICARE) ONE; -DIPHENHYDRAMINE HCL 50 MG/ML VIAL ONE; +KETOROLAC TROMETHAMINE 0.45% 4 DROP/0.4 ML DROPERETTE OD PRN; -KETOROLAC TROMETHAMINE 0.45% 4 DROP/0.4 ML DROPERETTE OS PRN; -LIDOCAINE 4% INJ/PF (40 MG/ML) 5 ML AMPUL OS PRN; -MIDAZOLAM 2 MG/2 ML INJ ONE; -NEOSTIGMINE METHYLSULFATE 10 MG/10 ML VIAL ONE; -PHENYLEPHRINE/KETOROLAC 1%-0.3% 4 ML VIAL ONE
[2017-06-05] MEDS: LIDOCAINE 3.5% OPH GEL/PF 1 ML/TUBE OD PRN ×2 (06:46→07:20)
[2017-06-05] MEDS: TROPICAMIDE 1% OPH SOLN 3 ML OD PRN ×3 (06:47→07:16)
[2017-06-05] MEDS: CYCLOPENTOLATE 0.2%/PHENYLEPHRINE 1% OPH SOLN 2 ML OD PRN ×3 (06:47→07:16)
[2017-06-05] MEDS: BESIFLOXACIN HCL 0.6% OPH SUSP 5 ML BOTTLE OD PRN ×4 (06:48→08:27)
[2017-06-05] MEDS ORDERED: PHENYLEPHRINE/KETOROLAC 1%-0.3% 4 ML VIAL ONE (07:29)
[2017-06-05] MEDS ORDERED: MIDAZOLAM 2 MG/2 ML INJ ONE (07:36)
[2017-06-05] MEDS ORDERED: FENTANYL CITRATE INJ/PF 100 MCG/2 ML AMPUL ONE (07:37)
[2017-06-05] MEDS: LIDOCAINE 4% INJ/PF (40 MG/ML) 5 ML AMPUL OD PRN ×2 (08:00)
[2017-06-05] MEDS: CHONDR SU A NA/HYALUR INTRAOC KIT (SURGICARE) ONE ×2 (08:16)
--- NOTE | 2017-06-05 08:57 | [facility] OPERATIVE REPORT E ---
[facility] Operative Report NAME: CARRI BUSH AGE: 76Y DATE OF SURGERY: 06/05/2017 ROOM: PREOPERATIVE DIAGNOSIS: Cataract, right eye. POSTOPERATIVE DIAGNOSIS: Cataract, right eye. PROCEDURE PERFORMED: Phacoemulsification with posterior chamber intraocular lens, right eye. SURGEON: Aminata Martinez MD ANESTHESIA: Topical with MAC. INDICATIONS FOR SURGERY: Difficulty reading small print. Best corrected visual acuity 20/50. PROCEDURE: The patient was brought to the operating room and placed on the operative table. Following tetracaine drops, topical anesthesia was administered. This consisted of instrument wipe pledgets soaked in a solution of 4% Xylocaine mixed with 0.75% Marcaine in a 1:2 ratio. A 2 x 1 cm pledget was placed in the superior fornix. A 1 x 1 cm pledget was placed in the inferior fornix. The eye was patched shut for 5 minutes. The patch was removed. The eye was sterilely prepped and draped in the usual manner. Lid speculum was placed in the eye. The pledgets were removed. 4-0 black silk sutures were placed around the superior and the inferior rectus muscles to be used as traction. A conjunctival peritomy was made at the 10 o'clock position. Hemostasis was obtained with bipolar cautery. A posterior limbal groove was created using a crescent knife and dissected anteriorly towards the cornea. A sharp point blade was used to create a paracentesis site at the 2 o'clock position. A 2.4 mm keratome was used to enter the anterior chamber through the groove. Viscoelastic was injected into the anterior chamber. An anterior capsulotomy was performed using Utrata forceps in a capsulorrhexis fashion. Hydrodissection and hydrodelineation were performed. Phacoemulsification was performed in [id number] technique. Total phaco time 1 minute 6 seconds. Following this, the I/A unit was used to remove residual cortex. Viscoelastic was injected into the capsular bag. Intraocular lens model [id number], 20.5 diopters, serial number [id number] was placed in the capsular bag. The I/A unit was used to remove residual viscoelastic. The wound was seen to be watertight under high and low pressure, and no sutures were placed. The intraocular lens was well centered. The pressure was adjusted in the eye to normal pressure. The 4-0 black silk sutures and lid speculum were removed. The eye was shielded after Besivance drops were placed. The patient tolerated the procedure well and was sent to the recovery room in good condition. DICTATING PHYSICIAN: AMINATA MARTINEZ M.D. [id number] PHY#: [id number] ID: [id number] JOB#: [id number] ACCT: [id number] cc:AMINATA MARTINEZ M.D. >
--- NOTE | 2017-06-05 08:57 | [facility] DISCHARGE SUMMARY E ---
[facility] Discharge Summary NAME: CARRI BUSH AGE: 76Y ADMITTED: 06/05/2017 DISCHARGED: 06/05/2017 PREOPERATIVE DIAGNOSIS: Cataract, right eye. POSTOPERATIVE DIAGNOSIS: Cataract, right eye. HOSPITAL COURSE: The patient is a 76-year-old lady who underwent uneventful cataract extraction with intraocular lens implant, right eye, on 06/05/2017. She will be discharged to home. She was instructed to resume preoperative medications, take Tylenol as needed for discomfort, to keep her eye shielded, to use Besivance, Durezol, and Ilevro at 3 p.m. and 8 p.m., and to followup in my office in 1 day. DICTATING PHYSICIAN: CARLOZ MARTINEZ M.D. [id number] PHY#: [id number] ID: [id number] JOB#: [id number] ACCT: [id number] cc:CARLOZ MARTINEZ M.D. >
== END 2017-06-05 09:08 | disposition home or self-care (01) ==
LOC: SC 06:22
PROVIDERS: ATTEND Ophthalmology
PROC: 08RJ3JZ Replacement of Right Lens with Synthetic Substitute, Percutaneous Approach (ICD-10-PCS; principal; 2017-06-05 07:45)
DX: H25.811 Combined forms of age-related cataract, right eye (principal); Z96.1 Presence of intraocular lens; Z98.42 Cataract extraction status, left eye; F17.210 Nicotine dependence, cigarettes, uncomplicated; K21.9 Gastro-esophageal reflux disease without esophagitis; E07.9 Disorder of thyroid, unspecified; I10 Essential (primary) hypertension; Z79.899 Other long term (current) drug therapy; Z79.1 Long term (current) use of non-steroidal anti-inflammatories (NSAID)
CPT/HCPCS: 66984; V2632; J2250; J3490 ×3; A9270 ×2; J3010; C9447; 142

== ENCOUNTER 2017-08-08 13:57 | Inpatient (IN) | payer MEDICARE, OTHER ==
--- NOTE | 2017-08-08 14:13 | ER Document Report ---
ED Medical Screen (RME) - General Chief Complaint: Abdominal Pain Stated Complaint: ABDOMINAL PAIN Time Seen by Provider: 08/08/17 14:12 Notes: Patient states that she is having left lower quadrant abdominal pain with decreased appetite. No vomiting or diarrhea. She states she had similar symptoms approximately 5 months ago when she had an intestinal rupture from diverticulitis. TRAVEL OUTSIDE OF THE [place] IN LAST 30 DAYS: No - Related Data Allergies/Adverse Reactions: Sulfa (Sulfonamide Antibiotics) Allergy (Mild, Verified 08/08/17 14:00) ITCHING codeine Allergy (Verified 08/08/17 14:00) itching pseudoephedrine [From Sudafed] Allergy (Verified 08/08/17 14:00) itching Past Medical History - Social History Chew tobacco use (# tins/day): No Frequency of alcohol use: None Drug Abuse: None - Past Medical History Cardiac Medical History: Reports: Hx Hypertension - MEDICATED Denies: Hx Coronary Artery Disease, Hx Heart Attack Pulmonary Medical History: Reports: Hx Pneumonia - hx 2016 x2 Denies: Hx Asthma, Hx Bronchitis, Hx COPD Neurological Medical History: Denies: Hx Cerebrovascular Accident, Hx Seizures Renal/ Medical History: Denies: Hx Peritoneal Dialysis GI Medical History: Reports: Hx Hiatal Hernia, Hx Ulcer - LONG TIME AGO. Denies : Hx Hepatitis Musculoskeltal Medical History: Reports Hx Arthritis Psychiatric Medical History: Denies: Hx Depression Infectious Medical History: Denies: Hx Hepatitis Past Surgical History: Reports: Hx Appendectomy, Hx Bowel Surgery - 27 inches of the small intestine was removed due to bacterial infection, Hx Cholecystectomy, Hx Hysterectomy. Denies: Hx Mastectomy, Hx Open Heart Surgery , Hx Pacemaker - Immunizations Hx Diphtheria, Pertussis, Tetanus Vaccination: Yes Physical Exam - Vital signs Vitals: Temp Pulse Resp BP Pulse Ox 98.4 F 70 20 130/82 H 94 08/08/17 14:02 08/08/17 14:02 08/08/17 14:02 08/08/17 14:02 08/08/17 14:02 Course - Vital Signs Vital signs: Temp Pulse Resp BP Pulse Ox 98.4 F 70 20 130/82 H 94 08/08/17 14:02 08/08/17 14:02 08/08/17 14:02 08/08/17 14:02 08/08/17 14:02
--- NOTE | 2017-08-08 14:35 | ER Document Report ---
ED GI/ - General Mode of Arrival: Ambulatory Information source: Patient TRAVEL OUTSIDE OF THE [place] IN LAST 30 DAYS: No <PIYUSH MOODY - Last Filed: 08/08/17 16:20> <JUAN POST - Last Filed: 08/08/17 19:47> - General Chief Complaint: Abdominal Pain Stated Complaint: ABDOMINAL PAIN Time Seen by Provider: 08/08/17 14:12 Notes: Patient is a 77-year-old female that presents to the emergency department today with complaints of left-sided abdominal pain. Patient has a history of perforated diverticulitis in the past and she states her pain today is nearly the exact same as then. Patient did not have this area laparoscopically resected as recommended. Patient denies any fevers. (PIYUSH MOODY) - Related Data Allergies/Adverse Reactions: Sulfa (Sulfonamide Antibiotics) Allergy (Mild, Verified 08/08/17 14:00) ITCHING codeine Allergy (Verified 08/08/17 14:00) itching pseudoephedrine [From Sudafed] Allergy (Verified 08/08/17 14:00) itching Home Medications: Current Home Medications Ezetimibe [Zetia 10 mg Tablet] 10 mg PO DAILY 08/08/17 [History] Hydrochlorothiazide [Hydrodiuril 12.5 mg Capsule] 12.5 mg PO DAILY 08/08/17 [ History] Losartan Potassium [Cozaar 100 mg Tablet] 100 mg PO DAILY 08/08/17 [History] Past Medical History - General Information source: Patient - Social History Smoking Status: Current Some Day Smoker Cigarette use (# per day): Yes Chew tobacco use (# tins/day): No Frequency of alcohol use: None Drug Abuse: None Lives with: Family Family History: None Patient has suicidal ideation: No Patient has homicidal ideation: No - Past Medical History Cardiac Medical History: Reports: Hx Hypertension - MEDICATED Pulmonary Medical History: Reports: Hx Pneumonia - hx 2016 x2 GI Medical History: Reports: Hx Diverticulitis - Perforated, Hx Hiatal Hernia, Hx Ulcer - LONG TIME AGO Musculoskeltal Medical History: Reports Hx Arthritis Past Surgical History: Reports: Hx Appendectomy, Hx Bowel Surgery - 27 inches of the small intestine was removed due to bacterial infection, Hx Cholecystectomy, Hx Hysterectomy - Immunizations Hx Diphtheria, Pertussis, Tetanus Vaccination: Yes Hx Pneumococcal Vaccination: 10/22/16 <FRANSISCO,PIYUSH - Last Filed: 08/08/17 16:20> Review of Systems - Review of Systems Constitutional: denies: Fever EENT: No symptoms reported Cardiovascular: No symptoms reported Respiratory: No symptoms reported Gastrointestinal: See HPI, Abdominal pain Genitourinary: No symptoms reported Female Genitourinary: No symptoms reported Musculoskeletal: No symptoms reported Skin: No symptoms reported Hematologic/Lymphatic: No symptoms reported Neurological/Psychological: No symptoms reported -: Yes All other systems reviewed and negative <PIYUSH MOODY - Last Filed: 08/08/17 16:20> Physical Exam <FRANSISCOFABYPIYUSH - Last Filed: 08/08/17 16:20> <JUAN POST - Last Filed: 08/08/17 19:47> - Vital signs Vitals: Temp Pulse Resp BP Pulse Ox 98.4 F 70 20 130/82 H 94 08/08/17 14:02 08/08/17 14:02 08/08/17 14:02 08/08/17 14:02 08/08/17 14:02 - Notes Notes: Physical Exam: General: Alert, appears uncomfortable. HEENT: Normocephalic. Atraumatic. PERRL. Extraocular movements intact. Oropharynx clear. Neck: Supple. Non-tender. Respiratory: No respiratory distress. Clear and equal breath sounds bilaterally. Cardiovascular: Regular rate and rhythm. Abdominal: Left lateral mid-abdominal tenderness with palpation, left lower quadrant tenderness with palpation. Obese. No distension. Normal Bowel Sounds. Back: Non-tender. No deformity or step off. Extremities: Moves all four extremities. Upper extremities: Normal inspection. Normal ROM. Lower extremities: Normal inspection. No edema. Normal ROM. Neurological: Normal cognition. AAOx4. Normal speech. Psychological: Normal affect. Normal Mood. Skin: Warm. Dry. Normal color. (PIYUSH MOODY) Course - Laboratory Result Diagrams: 08/08/17 14:45 08/08/17 14:45 <PIYUSH MOODY - Last Filed: 08/08/17 16:20> - Laboratory Result Diagrams: 08/08/17 14:45 08/08/17 14:45 - Diagnostic Test Radiology reviewed: Image reviewed, Reports reviewed - Diverticulitis - Consults Dr. Desouza Consulted provider: will see as inpatient - Requests the hospitalist admit the patient. Dr. Pool Time consulted: 19:35 Consulted provider: will come to ER - Telemetry admission <JUAN POST - Last Filed: 08/08/17 19:47> - Vital Signs Vital signs: Temp Pulse Resp BP Pulse Ox 98.0 F 64 18 142/75 H 95 08/08/17 18:13 08/08/17 18:13 08/08/17 18:13 08/08/17 18:13 08/08/17 18:13 - Laboratory Laboratory results interpreted by me: 08/08/17 08/08/17 08/08/17 14:38 14:45 14:45 WBC 10.8 H MCHC 36.3 H Seg Neutrophils % 78.6 H Absolute Neutrophils 8.5 H Sodium 136.7 L Chloride 96 L Urine Urobilinogen 2.0 H Discharge <PIYUSH MOODY - Last Filed: 08/08/17 16:20> - Discharge Admitting Provider: Hospitalist Unit Admitted: Telemetry <JUAN POST - Last Filed: 08/08/17 19:47> - Discharge Clinical Impression: Diverticulitis large intestine Qualifiers: Diverticulitis bleeding: without bleeding Diverticulitis complication: without perforation or abscess Qualified Code(s): K57.32 - Diverticulitis of large intestine without perforation or abscess without bleeding Condition: Stable Disposition: ADMITTED INPATIENT Referrals: AYLA KIM MD [Primary Care Provider] - Follow up as needed Scribe Attestation: 08/08/17 16:57 I personally performed the services described in the documentation, reviewed and edited the documentation which was dictated to the scribe in my presence, and it accurately records my words and actions. (JUAN POST) Scribe Documentation - Scribe Written by [place]:: [place] Moody, 08/08/2017 1456 acting as scribe for :: Sharon <PIYUSH MOODY - Last Filed: 08/08/17 16:20>
[2017-08-08] MEDS ORDERED: HYDROMORPHONE HCL INJ/PF 2 MG/ML AMPULE IV ONE ×2 (14:36→19:30)
[2017-08-08] MEDS ORDERED: PIPERACILLIN/TAZOBACTAM 3.375 GM VIAL IV ONE (14:36)
[2017-08-08] MEDS ORDERED: ONDANSETRON HCL INJ/PF 4 MG/2 ML SDV IV ONE ×2 (14:36→19:30)
[2017-08-08] MEDS ORDERED: NORMAL SALINE 1000 ML 1,000 ML IV ONE (14:37)
[2017-08-08 14:52] LABS: APPEARANCE,URINE SLIGHTLY-CLOUDY; BILIRUBIN,URINE NEGATIVE (NEGATIVE); GLUCOSE, URINE NEGATIVE (NEGATIVE); KETONES,URINE NEGATIVE (NEGATIVE); LEUKOCYTE ESTERASE,URINE NEGATIVE (NEGATIVE); NITRITE,URINE NEGATIVE (NEGATIVE); PROTEIN,URINE NEGATIVE (NEGATIVE); URINE SPECIFIC GRAVITY 1.011
[2017-08-08 14:59] LABS: ABSOLUTE BASOPHILS # (AUTO) 0.1 10^3/uL (0.0-0.2); ABSOLUTE EOSINOPHILS # (AUTO) 0.1 10^3/uL (0.0-0.6); ABSOLUTE LYMPHOCYTES (AUTO) 1.5 10^3/uL (0.5-4.7); ABSOLUTE MONOCYTES (AUTO) 0.7 10^3/uL (0.1-1.4); ABSOLUTE NEUT (AUTO) 8.5 10^3/uL (1.7-8.2); BASOPHILS % (AUTO) 0.7 % (0-2); EOSINOPHILS % (AUTO) 0.7 % (0-6); HEMATOCRIT 38.6 % (36.0-47.0); HGB HCT DIFFERENCE 3.4; LYMPHOCYTES % (AUTO) 13.7 % (13-45); MEAN CORPUSCULAR HEMOGLOBIN 31.6 pg (27.0-33.4); MEAN CORPUSCULAR HGB CONC 36.3 g/dL (32.0-36.0); MEAN CORPUSCULAR VOLUME 87 fl (80-97); MONOCYTES % (AUTO) 6.3 % (3-13); RED BLOOD COUNT 4.44 10^6/uL (3.72-5.28); SEGMENTED NEUTROPHILS % (AUTO) 78.6 % (42-78); WHITE BLOOD COUNT 10.8 10^3/uL (4.0-10.5)
[2017-08-08 15:11] LABS: ALANINE AMINOTRANSFERASE 45 U/L (9-52); ALBUMIN 4.2 g/dL (3.5-5.0); ALKALINE PHOSPHATASE 85 U/L (38-126); ANION GAP 12 (5-19); ASPARTATE AMINO TRANSFERASE 26 U/L (14-36); BILIRUBIN,DIRECT 0.4 mg/dL (0.0-0.4); BILIRUBIN,TOTAL 0.8 mg/dL (0.2-1.3); BLOOD UREA NITROGEN 11 mg/dL (7-20); CALCIUM 9.5 mg/dL (8.4-10.2); CARBON DIOXIDE 29 mmol/L (22-30); CHLORIDE 96 mmol/L (98-107); GLUCOSE 101 mg/dL (75-110); POTASSIUM 4.2 mmol/L (3.6-5.0); SODIUM 136.7 mmol/L (137-145); TOTAL PROTEIN 6.7 g/dL (6.3-8.2)
--- NOTE | 2017-08-08 18:15 | RADIOLOGY REPORT (SQ) ---
EXAM DESCRIPTION: CT ABD/PELVIS WITH IV ORAL COMPLETED DATE/TIME: 08/08/2017 5:43 pm REASON FOR STUDY: LLQ abd pain, PMH diverticulitis COMPARISON: None. TECHNIQUE: CT scan of the abdomen and pelvis performed using helical scanning technique with dynamic intravenous contrast injection. No oral contrast. Images reviewed with lung, soft tissue, and bone windows. Reconstructed coronal and sagittal MPR images reviewed. Delayed images for evaluation of the urinary system also acquired. All images stored on PACS. All CT scanners at this facility use dose modulation, iterative reconstruction, and/or weight based d osing when appropriate to reduce radiation dose to as low as reasonably achievable (ALARA). [facility]: Dose Right [facility]: CareDose [facility]: Dose Right [facility]: Teradose 4D [facility]: agri.capital CONTRAST TYPE AND DOSE: contrast/concentration: Isovue 370.00 mg/ml; Total Contrast Delivered: 100.0 ml; Total Saline Delivered: 61.0 ml RENAL FUNCTION: Creatinine 0.7 BUN 11 RADIATION DOSE: Up-to-date CT equipment and radiation dose reduction techniques were employed. CTDIv ol: 18.4 - 20.0 mGy. DLP: 2006 mGy-cm.. LIMITATIONS: None. FINDINGS: LOWER CHEST: No significant findings. No nodules or infiltrates. LIVER: Normal size. No masses. No dilated ducts. SPLEEN: Normal size. No focal lesions. PANCREAS: No masses. No significant calcifications. No adjacent inflammation or peripancreatic fluid collections. Pancreatic duct not dilated. GALLBLADDER: Surgically absent. ADRENAL GLANDS: No significant masses or asymmetry. RIGHT KIDNEY AND URETER: No solid masses. No significant calcifications. No hydronephrosis or hyd roureter. LEFT KIDNEY AND URETER: No solid masses. No significant calcifications. No hydronephrosis or hydr oureter. AORTA AND VESSELS: No aneurysm. Atherosclerosis. There is narrowing of the origin of the right henny l artery. RETROPERITONEUM: No retroperitoneal adenopathy, hemorrhage or masses. BOWEL AND PERITONEAL CAVITY: Questionable focal slightly nodular thickening of the wall of the gastri c antrum anteriorly. Diverticula arise from the descending and sigmoid colon. There is focal thicke susan of the wall of the colon near the ligament of Treitz and there is mild stranding in the fat. APPENDIX: Surgically absent. PELVIS: No mass. No free fluid. Normal bladder. ABDOMINAL WALL: There is a 15 mm wide ventral hernia on image 42 series 3. This contains only fat. BONES: No significant or acute findings. OTHER: No other significant finding. IMPRESSION: 1. Questionable focal thickening of the wall of the gastric antrum. Neoplasm cannot be excluded. 2. Diverticulitis. 3. Small ventral hernia containing only fat. 4. 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 TECHNICAL DOCUMENTATION: JOB ID: [id number] Quality ID # [id number]: Final reports with documentation of one or more dose reduction techniques (e.g., Au tomated exposure control, adjustment of the mA and/or kV according to patient size, use of iterative reconstruction technique) 2010 [employer]- All Rights Reserved
--- NOTE | 2017-08-08 19:28 | PDOC CONSULTATION ---
Consultation Consult Date: 08/08/17 Consult reason:: Acute sigmoid diverticulitis History of Present Illness Admission Date/PCP: AYLA KIM MD History of Present Illness: CARRI BUSH is a 77 year old female Complaining of left lower quadrant pains for the past 2 days. Denies any nausea vomiting diarrhea diarrhea or constipation. She had a bowel movement this morning. Denies any fever nor chills. Past Medical History Cardiac Medical History: Reports: Hypertension - MEDICATED Denies: Coronary Artery Disease, Myocardial Infarction Pulmonary Medical History: Reports: Pneumonia - hx 2016 x2 Denies: Asthma, Bronchitis, Chronic Obstructive Pulmonary Disease (COPD) Neurological Medical History: Denies: Seizures GI Medical History: Reports: Diverticulitis - Perforated, Hiatal Hernia, Other - She was admitted in December of this year for acute diverticulitis and manage Denies: Hepatitis Musculoskeltal Medical History: Reports: Arthritis Psychiatric Medical History: Denies: Depression Hematology: Denies: Anemia, Sickle Cell Disease Past Surgical History Past Surgical History: Reports: Appendectomy, Cholecystectomy, Hysterectomy, Other - About 27 inches of small bowel versus was resected which she claims due to Denies: Amputation, Mastectomy, Pacemaker Social History Lives with: Family Smoking Status: Current Some Day Smoker Cigarettes Packs Per Day: 1 - Actively smokes about half a pack a day Frequency of Alcohol Use: None Hx Recreational Drug Use: No Drugs: None Hx Prescription Drug Abuse: No - Advance Directive Resuscitation Status: Full Code Family History Family History: None, Reviewed & Not Pertinent Parental Family History Reviewed: No Children Family History Reviewed: No Sibling(s) Family History Reviewed.: No Medication/Allergy Home Medications: Atenolol 50 mg PO DAILY 12/28/16 Cetirizine HCl [Zyrtec] 10 mg PO DAILY PRN 12/28/16 Cyanocobalamin (Vitamin B-12) [Vitamin B-12 500 mcg Tablet] 500 mcg PO DAILY 07/08 Ezetimibe [Zetia 10 mg Tablet] 10 mg PO DAILY 12/28/16 Gabapentin [Neurontin] 800 mg PO TID 12/28/16 Ibuprofen [Motrin 600 mg Tablet] 600 mg PO TID PRN 12/28/16 Levothyroxine Sodium [Synthroid] 137 mcg PO DAILY 12/28/16 Omeprazole 40 mg PO DAILY PRN 12/28/16 Simvastatin [Zocor 20 mg Tablet] 20 mg PO QHS 12/28/16 Duloxetine HCl [Cymbalta] 60 mg PO DAILY 05/09/17 Ezetimibe [Zetia 10 mg Tablet] 10 mg PO DAILY 08/08/17 Hydrochlorothiazide [Hydrodiuril 12.5 mg Capsule] 12.5 mg PO DAILY 08/08/17 Losartan Potassium [Cozaar 100 mg Tablet] 100 mg PO DAILY 08/08/17 Allergies/Adverse Reactions: Sulfa (Sulfonamide Antibiotics) Allergy (Mild, Verified 08/08/17 14:00) ITCHING codeine Allergy (Verified 08/08/17 14:00) itching pseudoephedrine [From Sudafed] Allergy (Verified 08/08/17 14:00) itching Review of Systems Constitutional: PRESENT: other - Denies fever nor chills Eyes: PRESENT: other - Just had cataract surgery Ears: PRESENT: other - No hearing on the right ear and 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 Psychiatric: PRESENT: other - Patient with no evidence of hallucinations Endocrine: PRESENT: other - No polyuria no polydipsia polydipsia Hematologic/Lymphatic: PRESENT: other - No easy bleeding or lymphadenopathy Allergic/Immunologic: PRESENT: other - Takes prescription Zyrtec for allergies Physical Exam Vital Signs: Temp Pulse Resp BP Pulse Ox 98.0 F 64 18 142/75 H 95 08/08/17 18:13 08/08/17 18:13 08/08/17 18:13 08/08/17 18:13 08/08/17 18:13 Intake & Output 08/07/17 08/08/17 08/09/17 06:59 06:59 06:59 Weight 94.7 kg General appearance: PRESENT: mild distress Head exam: PRESENT: atraumatic, normocephalic Eye exam: PRESENT: conjunctiva pink Ear exam: PRESENT: normal external ear exam Mouth exam: PRESENT: moist, tongue midline Throat exam: PRESENT: other - No post pharyngeal erythema Neck exam: PRESENT: full ROM, other - Trachea midline Respiratory exam: PRESENT: clear to auscultation magi Cardiovascular exam: PRESENT: RRR Pulses: PRESENT: normal carotid pulses Vascular exam: PRESENT: normal capillary refill GI/Abdominal exam: PRESENT: soft, other - Positive tenderness at the left lower quadrant no rebound tenderness Rectal exam: PRESENT: deferred Extremities exam: PRESENT: other - No edema Musculoskeletal exam: PRESENT: ambulatory Neurological exam: PRESENT: alert, oriented to person, oriented to place, oriented to time, oriented to situation, CN II-XII grossly intact Psychiatric exam: PRESENT: normal mood Skin exam: PRESENT: dry, normal color, warm Results Laboratory Results: 08/08/17 14:45 08/08/17 14:45 08/08/17 08/08/17 08/08/17 14:38 14:45 14:45 WBC 10.8 H RBC 4.44 Hgb 14.0 Hct 38.6 MCV 87 MCH 31.6 MCHC 36.3 H RDW 14.0 Plt Count 250 Seg Neutrophils % 78.6 H Lymphocytes % 13.7 Monocytes % 6.3 Eosinophils % 0.7 Basophils % 0.7 Absolute Neutrophils 8.5 H Absolute Lymphocytes 1.5 Absolute Monocytes 0.7 Absolute Eosinophils 0.1 Absolute Basophils 0.1 Sodium 136.7 L Potassium 4.2 Chloride 96 L Carbon Dioxide 29 Anion Gap 12 BUN 11 Creatinine 0.70 Est GFR ( Amer) > 60 Est GFR (Non-Af Amer) > 60 Glucose 101 Calcium 9.5 Total Bilirubin 0.8 AST 26 ALT 45 Alkaline Phosphatase 85 Total Protein 6.7 Albumin 4.2 Urine Color YELLOW Urine Appearance SLIGHTLY-CLOUDY Urine pH 7.0 Ur Specific [place] 1.011 Urine Protein NEGATIVE Urine Glucose (UA) NEGATIVE Urine Ketones NEGATIVE Urine Blood NEGATIVE Urine Nitrite NEGATIVE Ur Leukocyte Esterase NEGATIVE Urine WBC (Auto) 1 Urine RBC (Auto) 1 Impressions: Abdomen/Pelvis CT 08/08/17 14:37 IMPRESSION: 1. Questionable focal thickening of the wall of the gastric antrum. Neoplasm cannot be excluded. 2. Diverticulitis. 3. Small ventral hernia containing only fat. 4. 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 Assessment & Plan - Time Time Spent: 30 to 50 Minutes - Plan Summary Plan Summary: #1 keep n.p.o. 2. Start IV antibiotics can use as Zosyn 3. Keep hydrated with normal saline 4. Continue monitoring white count We will follow up the patient with you
[2017-08-08] MEDS ORDERED: PROMETHAZINE HCL 25 MG TABLET PO PRN (20:08)
[2017-08-08] MEDS ORDERED: ACETAMINOPHEN 325 MG TABLET PO PRN (20:08)
[2017-08-08] MEDS ORDERED: DEXTROSE 5%-NORMAL SALINE 1,000 ML IV PRN ×2 (20:09→23:02)
[2017-08-08 20:13] LABS: ADD ON TESTING BLD IN LAB ACKNOWLEDGE
[2017-08-08 20:21] LABS: MAGNESIUM 1.5 mg/dL (1.6-2.3)
[2017-08-08] MEDS: MAGNESIUM SULFATE/D5W 1 GM/100 ML RTUPB IV SCH (22:39)
--- NOTE | 2017-08-08 23:15 | PDOC H&P ---
History of Present Illness Admission Date/PCP: 08/08/17 20:19 AYLA KIM MD Patient complains of: Abdominal pain History of Present Illness: CARRI BUSH is a 77 year old female Complaining of left lower quadrant pains for the past 2 days. Denies any nausea vomiting diarrhea diarrhea or constipation. She had a bowel movement this morning. Denies any fever nor chills. Describes the pain as "sore." Radiates to her back. Increases with movement. Quite similar to prior episodes of diverticulitis, most recent of which was in December of this year, when she was hospitalized at our facility with IV antibiotics at that time. History and physical and discharge summary have been reviewed. Colonoscopy in January of this year revealed scattered sigmoid diverticulosis. Report reviewed. Several prior episodes of diverticulitis. Has been seen by the surgeon assembly person, with consultation placed. Patient has been discussed with emergency room physician who evaluated the patient. Currently resting quietly, without pain. Dictation via voice recognition software. Laboratory results are listed in [facility] and are reviewed. X-ray summary results are listed below, with full report(s) reviewed. Social history/personal habits: . 4 children. Retired. Allergies/adverse reactions are listed in [facility] and are reviewed. Home medications initially autopopulated into [employer] may not accurately reflect patient's true medications, dosages, and/or frequencies. medical administrative technician has reconciled medications. REVIEW OF SYSTEMS: Constitutional: No fever or chills. Eyes: Wears glasses.. ENT: No swallowing problems or complaints. Partial hearing loss. Pulmonary: No current complaints. Cardiovascular: No current complaints, including chest pain. Gastrointestinal: See history and present illness. Skin: No current complaints, including rashes. Hematologic: Easy bruising. Neurologic: Chronic peripheral neuropathy involving her feet. Musculoskeletal: Joint pain from arthritis. Psychiatric: Denies anxiety or depression. Endocrine: No current complaints, including polyuria. Genitourinary: No current complaints, including dysuria. PHYSICAL EXAMINATION: Her floor nurse Shiv is present. 5 feet 6 inches tall. 94.7 kg. BMI 33.7 kg/m. Temperature 98.0. Pulse 64 and regular. Blood pressure 142/75. Respirations are 18 and unlabored. 95% saturation on room air. Somewhat obese otherwise well-developed elderly female appearing perhaps a bit younger than her stated age. Pleasant awake alert and cooperative. No obvious distress other than perhaps mildly anxious. Skin is warm and dry. No grossly obvious evidence of rash in areas of skin examined. No subcutaneous nodules palpated. ENT: Hearing grossly normal to normal conversation. Tongue midline on protrusion pink and slightly tacky. Eyes: No scleral icterus. Pupils equal and reactive to light at 4 mm. [place] conjunctivae. Neck is supple and nontender to gentle active range of motion and palpation. Midline trachea. No palpable thyroid nodule mass enlargement or tenderness. Lymphatic: No palpable cervical or clavicular nodes. Neck and lymphatic exams limited by patient body habitus. Psychiatric: Reasonable insight into acute and chronic medical issues. Oriented to time location and why here. Lungs: Auscultation reveals clear and equal breath sounds bilaterally. No use of accessory respiratory muscles. Cardiovascular: Heart regular rate and rhythm, without gallop murmur or rub. No carotid or abdominal aortic bruits. No ankle or pedal edema. Faintly palpable dorsalis pedis pulses. Abdomen:soft somewhat obese nontender other than quite minimal left upper quadrant discomfort to palpation with positive bowel sounds. Certainly no evidence of guarding or peritoneal signs. Unable to adequately evaluate abdomen for masses or organomegaly due to body habitus. Extremities: Feet are warm and dry. No calf tenderness to compression. No grossly obvious visual evidence of calf swelling. Gentle manipulation of lower extremities fails to reveal any obvious evidence of injury or instability to knees hips or ankles. Neurologic: Moves upper extremities grossly normally. Patellar reflexes absent. Absent Babinski. Light touch is decreased at feet, a chronic finding, per patient, without recent change. Dorsiflexion and plantarflexion of feet 5 / 5 and symmetric. Past Medical History Cardiac Medical History: Reports: Hyperlipidema, Hypertension Denies: Atrial Fibrillation, Congestive Heart Failure, Coronary Artery Disease, DVT, Myocardial Infarction, Pulmonary Embolism Pulmonary Medical History: Reports: Pneumonia - hx 2016 x2 Denies: Asthma, Bronchitis, Chronic Obstructive Pulmonary Disease (COPD), Sleep Apnea Neurological Medical History: Denies: Hemorrhagic CVA, Ischemic CVA, Seizures Endocrine Medical History: Reports: Hypothyroidism Denies: Diabetes Mellitus Type 1, Diabetes Mellitus Type 2, Hyperthyroidism GI Medical History: Reports: Diverticulitis - Perforated, Hiatal Hernia, Other - Hx pud Denies: Cirrhosis, Hepatitis Musculoskeltal Medical History: Reports: Arthritis Skin Medical History: Reports: None Psychiatric Medical History: Denies: Alcohol Dependency, Depression, General Anxiety Disorder, Substance Abuse, Tobacco Dependency Infectious Medical History: Denies: Hepatitis B, Hepatitis C Past Surgical History Past Surgical History: Reports: Appendectomy, Cholecystectomy, Hysterectomy, Other - About 27 inches of small bowel resected due to bowel obstruction Social History Information Source: Patient, Emergency Med Personnel, [facility] Records Lives with: Spouse/Significant other Smoking Status: Current Every Day Smoker - One third pack per day. Frequency of Alcohol Use: None Hx Recreational Drug Use: No Drugs: None Hx Prescription Drug Abuse: No - Advance Directive Resuscitation Status: Full Code Surrogate healthcare decision maker:: Family History Family History: None, Reviewed & Not Pertinent Parental Family History Reviewed: Yes - Father after stroke. Mother of dementia. Children Family History Reviewed: Yes - Son with Crohn's disease. Sibling(s) Family History Reviewed.: Yes - Brother with "typical old age problems " Medication/Allergy Home Medications: Atenolol 50 mg PO DAILY 12/28/16 Cetirizine HCl [Zyrtec] 10 mg PO DAILY PRN 12/28/16 Cyanocobalamin (Vitamin B-12) [Vitamin B-12 500 mcg Tablet] 500 mcg PO DAILY 07/08 Ezetimibe [Zetia 10 mg Tablet] 10 mg PO DAILY 12/28/16 Gabapentin [Neurontin] 800 mg PO TID 12/28/16 Ibuprofen [Motrin 600 mg Tablet] 600 mg PO TID PRN 12/28/16 Levothyroxine Sodium [Synthroid] 137 mcg PO DAILY 12/28/16 Omeprazole 40 mg PO DAILY PRN 12/28/16 Simvastatin [Zocor 20 mg Tablet] 20 mg PO QHS 12/28/16 Duloxetine HCl [Cymbalta] 60 mg PO DAILY 05/09/17 Ezetimibe [Zetia 10 mg Tablet] 10 mg PO DAILY 08/08/17 Hydrochlorothiazide [Hydrodiuril 12.5 mg Capsule] 12.5 mg PO DAILY 08/08/17 Losartan Potassium [Cozaar 100 mg Tablet] 100 mg PO DAILY 08/08/17 Allergies/Adverse Reactions: Sulfa (Sulfonamide Antibiotics) Allergy (Mild, Verified 08/08/17 14:00) ITCHING codeine Allergy (Verified 08/08/17 23:00) itching pseudoephedrine [From Sudafed] Allergy (Verified 08/08/17 14:00) itching oxycodone [From Percocet] Adverse Reaction (Verified 08/08/17 22:55) Physical Exam Vital Signs: Temp Pulse Resp BP Pulse Ox 98.0 F 64 18 142/75 H 95 08/08/17 18:13 08/08/17 18:13 08/08/17 18:13 08/08/17 18:13 08/08/17 18:13 Results Impressions: Abdomen/Pelvis CT 08/08/17 14:37 IMPRESSION: 1. Questionable focal thickening of the wall of the gastric antrum. Neoplasm cannot be excluded. 2. Diverticulitis. 3. Small ventral hernia containing only fat. 4. 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 Assessment & Plan - Diagnosis (1) Abnormal CT scan, stomach Is this a current diagnosis for this admission?: Yes Plan: GI consult. Patient understands the importance of follow-up of this abnormality , to ensure it is not cancer. Discussed in layperson's terms. (2) Diverticulitis large intestine Qualifiers: Diverticulitis bleeding: without bleeding Diverticulitis complication: without perforation or abscess Qualified Code(s): K57.32 - Diverticulitis of large intestine without perforation or abscess without bleeding Is this a current diagnosis for this admission?: Yes Plan: Continue Zosyn. Ice chips. Surgery has seen patient; will follow in consultation. As needed medications for pain and nausea and vomiting. I have strongly encouraged patient not to get out of bed without notifying staff , to avoid a fall with injury. Knee high SCDs for DVT prophylaxis, along with subcutaneous Lovenox. Impression and plans were discussed with patient, who concurs. Time spent in evaluation and management of patient: 82 minutes. (3) Hypomagnesemia Is this a current diagnosis for this admission?: Yes Plan: Magnesium supplement, with follow-up level. (4) Diastolic CHF Qualifiers: Congestive heart failure chronicity: chronic Qualified Code(s): I50.32 - Chronic diastolic (congestive) heart failure Is this a current diagnosis for this admission?: Yes Plan: Resume home medications as appropriate once these have been determined and reviewed. (5) HLD (hyperlipidemia) Qualifiers: Hyperlipidemia type: unspecified Qualified Code(s): E78.5 - Hyperlipidemia , unspecified Is this a current diagnosis for this admission?: Yes Plan: Resume home medications as appropriate once these have been determined and reviewed. (6) HTN (hypertension) Qualifiers: Hypertension type: essential hypertension Qualified Code(s): I10 - Essential (primary) hypertension Is this a current diagnosis for this admission?: Yes Plan: Resume home medications as appropriate once these have been determined and reviewed. (7) Hypothyroid Qualifiers: Hypothyroidism type: unspecified Qualified Code(s): E03.9 - Hypothyroidism , unspecified Is this a current diagnosis for this admission?: Yes Plan: Resume home medications as appropriate once these have been determined and reviewed. - Time Time Spent: Greater than 70 Minutes Medications reviewed and adjusted accordingly: Yes Anticipated discharge: Home Within: within 72 hours - Inpatient Certification Based on my medical assessment, after consideration of the patient's comorbidities, presenting symptoms, or acuity I expect that the services needed warrant INPATIENT care.: Yes I certify that my determination is in accordance with my understanding of Medicare's requirements for reasonable and necessary INPATIENT services [42 CFR 412.3e].: Yes Medical Necessity: Need Close Monitoring Due to Risk of Patient Decompensation, Need For IV Fluids, Need For Continuous Telemetry Monitoring, Need for IV Antibiotics, Risk of Complication if Not Cared For in Hospital Post Hospital Care: D/C or Transfer Summary
[2017-08-08] MEDS ORDERED: PIPERACILLIN/TAZOBACTAM 3.375 GM VIAL IV PRN (23:18)
[2017-08-09] MEDS: MAGNESIUM SULFATE/D5W 1 GM/100 ML RTUPB IV SCH (00:17)
[2017-08-09] MEDS ORDERED: PIPERACILLIN/TAZOBACTAM 3.375 GM VIAL IV ONE (00:30)
[2017-08-09] MEDS: PIPERACILLIN SODIUM/TAZOBACTAM 3.375 GM in NORMAL SALINE 100 ML IV SCH ×2 (05:54→14:55)
[2017-08-09 06:33] LABS: ABSOLUTE EOSINOPHILS # (AUTO) 0.1 10^3/uL (0.0-0.6); ABSOLUTE LYMPHOCYTES (AUTO) 1.1 10^3/uL (0.5-4.7); ABSOLUTE MONOCYTES (AUTO) 0.7 10^3/uL (0.1-1.4); ABSOLUTE NEUT (AUTO) 5.1 10^3/uL (1.7-8.2); BASOPHILS % (AUTO) 0.6 % (0-2); EOSINOPHILS % (AUTO) 1.4 % (0-6); HEMATOCRIT 35.9 % (36.0-47.0); HEMOGLOBIN 12.8 g/dL (12.0-15.5); HGB HCT DIFFERENCE 2.5; LYMPHOCYTES % (AUTO) 15.9 % (13-45); MEAN CORPUSCULAR HGB CONC 35.7 g/dL (32.0-36.0); MEAN CORPUSCULAR VOLUME 87 fl (80-97); MONOCYTES % (AUTO) 9.8 % (3-13); RED BLOOD COUNT 4.14 10^6/uL (3.72-5.28); RED CELL DISTRIBUTION WIDTH 13.8 % (11.5-14.0); SEGMENTED NEUTROPHILS % (AUTO) 72.3 % (42-78); WHITE BLOOD COUNT 7.1 10^3/uL (4.0-10.5)
[2017-08-09 06:42] LABS: ANION GAP 10 (5-19); BLOOD UREA NITROGEN 8 mg/dL (7-20); CALCIUM 8.7 mg/dL (8.4-10.2); CARBON DIOXIDE 27 mmol/L (22-30); CHLORIDE 103 mmol/L (98-107); CREATININE RESULT 0.68 mg/dL (0.52-1.25); GLUCOSE 116 mg/dL (75-110); MAGNESIUM 2.1 mg/dL (1.6-2.3); POTASSIUM 3.7 mmol/L (3.6-5.0); SODIUM 139.9 mmol/L (137-145)
[2017-08-09] MEDS ORDERED: PROMETHAZINE HCL 25 MG TABLET PO PRN (08:00)
[2017-08-09] MEDS ORDERED: LANSOPRAZOLE 30 MG TAB.RAP.DR PO ONE (08:00)
[2017-08-09] MEDS ORDERED: CETIRIZINE 10 MG TABLET PO PRN (09:10)
[2017-08-09] MEDS: ATENOLOL 50 MG TABLET PO SCH (09:59)
[2017-08-09] MEDS ORDERED: (PENDING PHARMACY ID) (Levothyroxine Sodium [Synthroid] 137 MCG) PO SCH (10:00)
[2017-08-09] MEDS ORDERED: (PENDING PHARMACY ID) (Cyanocobalamin (Vitamin B-12) [Vitamin B-12 500 Mcg Tablet] 500 MCG PO SCH (10:00)
[2017-08-09] MEDS ORDERED: LEVOTHYROXINE SODIUM 0.025 MG TABLET PO SCH (10:00)
[2017-08-09] MEDS: EZETIMIBE 10 MG TABLET PO SCH (10:00)
[2017-08-09] MEDS ORDERED: LEVOTHYROXINE SODIUM 0.112 MG TABLET PO SCH (10:00)
[2017-08-09] MEDS: CYANOCOBALAMIN (VITAMIN B-12) 1,000 MCG TABLET PO SCH (10:01)
[2017-08-09] MEDS: LOSARTAN POTASSIUM 50 MG TABLET PO SCH (10:02)
[2017-08-09] MEDS: HYDROCHLOROTHIAZIDE 12.5 MG CAPSULE PO SCH (10:02)
[2017-08-09] MEDS: ENOXAPARIN SODIUM INJ 40 MG/0.4 ML DISP.SYRIN SUBCUT SCH (10:13)
[2017-08-09] MEDS: DULOXETINE HCL 30 MG CAPSULE.DR PO SCH (10:18)
--- NOTE | 2017-08-09 13:46 | PDOC CONSULTATION ---
Consultation Consult Date: 08/09/17 Attending physician:: ABHISHEK TOMPKINS Consult reason:: abnormal CT scan , thickening of the stomach. diverticulitis History of Present Illness Admission Date/PCP: 08/08/17 22:57 AYLA KIM MD History of Present Illness: I am asked to see this patient by the hospitalist service patient has been seen by Dr Lee in the past with colonoscopy it was noted that she has diverticulosis apparently has had admission in the past for diverticulitis had CT scan this time there appears to be some thickening of the stomach antrum her diverticulitis is noted on the right side no melena patient states pain in in her abdomen there is no nausea or vomiting Past Medical History Cardiac Medical History: Reports: Hyperlipidema, Hypertension Denies: Atrial Fibrillation, Congestive Heart Failure, Coronary Artery Disease, DVT, Myocardial Infarction, Pulmonary Embolism Pulmonary Medical History: Reports: Pneumonia - hx 2016 x2 Denies: Asthma, Bronchitis, Chronic Obstructive Pulmonary Disease (COPD), Sleep Apnea Neurological Medical History: Denies: Hemorrhagic CVA, Ischemic CVA, Seizures Endocrine Medical History: Reports: Hypothyroidism Denies: Diabetes Mellitus Type 1, Diabetes Mellitus Type 2, Hyperthyroidism GI Medical History: Reports: Diverticulitis - Perforated, Hiatal Hernia, Other - Hx pud Denies: Cirrhosis, Hepatitis Musculoskeltal Medical History: Reports: Arthritis Skin Medical History: Reports: None Psychiatric Medical History: Denies: Alcohol Dependency, Depression, General Anxiety Disorder, Substance Abuse, Tobacco Dependency Hematology: Denies: Anemia, Sickle Cell Disease Infectious Medical History: Denies: Hepatitis B, Hepatitis C Past Surgical History Past Surgical History: Reports: Appendectomy, Cholecystectomy, Hysterectomy, Other - About 27 inches of small bowel resected due to bowel obstruction Denies: Amputation, Mastectomy, Pacemaker Social History Lives with: Spouse/Significant other Smoking Status: Current Every Day Smoker - One third pack per day. Cigarettes Packs Per Day: 1 Frequency of Alcohol Use: None Hx Recreational Drug Use: No Drugs: None Hx Prescription Drug Abuse: No - Advance Directive Resuscitation Status: Full Code Family History Family History: None, Reviewed & Not Pertinent Parental Family History Reviewed: Yes Children Family History Reviewed: Unknown Sibling(s) Family History Reviewed.: Unknown Medication/Allergy Home Medications: Atenolol 50 mg PO DAILY 12/28/16 Cetirizine HCl [Zyrtec] 10 mg PO DAILY PRN 12/28/16 Cyanocobalamin (Vitamin B-12) [Vitamin B-12 500 mcg Tablet] 500 mcg PO DAILY 07/08 Ezetimibe [Zetia 10 mg Tablet] 10 mg PO DAILY 12/28/16 Gabapentin [Neurontin] 800 mg PO TID 12/28/16 Ibuprofen [Motrin 600 mg Tablet] 600 mg PO TID PRN 12/28/16 Levothyroxine Sodium [Synthroid] 137 mcg PO DAILY 12/28/16 Omeprazole 40 mg PO DAILY PRN 12/28/16 Simvastatin [Zocor 20 mg Tablet] 20 mg PO QHS 12/28/16 Duloxetine HCl [Cymbalta] 60 mg PO DAILY 05/09/17 Ezetimibe [Zetia 10 mg Tablet] 10 mg PO DAILY 08/08/17 Hydrochlorothiazide [Hydrodiuril 12.5 mg Capsule] 12.5 mg PO DAILY 08/08/17 Losartan Potassium [Cozaar 100 mg Tablet] 100 mg PO DAILY 08/08/17 Allergies/Adverse Reactions: Sulfa (Sulfonamide Antibiotics) Allergy (Mild, Verified 08/08/17 14:00) ITCHING codeine Allergy (Verified 08/08/17 23:00) itching pseudoephedrine [From Sudafed] Allergy (Verified 08/08/17 14:00) itching oxycodone [From Percocet] Adverse Reaction (Verified 08/08/17 22:55) Review of Systems Constitutional: ABSENT: fever(s), headache(s), night sweats, weakness Eyes: ABSENT: visual disturbances Ears: ABSENT: hearing changes Nose, Mouth, and Throat: ABSENT: mouth pain Cardiovascular: ABSENT: chest pain, edema, orthropnea Respiratory: ABSENT: dyspnea, hemoptysis Gastrointestinal: PRESENT: abdominal pain. ABSENT: diarrhea, dysphagia, nausea , vomiting Genitourinary: ABSENT: dysuria Musculoskeletal: ABSENT: deformity Integumentary: ABSENT: lesions Neurological: ABSENT: syncope, tingling, tremor(s), vertigo, weakness Endocrine: ABSENT: polydipsia, polyphagia, polyuria Hematologic/Lymphatic: ABSENT: easy bruising Physical Exam Vital Signs: Temp Pulse Resp BP Pulse Ox 99.0 F 59 L 15 131/68 H 97 08/09/17 11:46 08/09/17 11:46 08/09/17 11:46 08/09/17 11:46 08/09/17 11:46 Intake & Output 08/08/17 08/09/17 08/10/17 06:59 06:59 06:59 Intake Total 725 Output Total 800 Balance -75 General appearance: PRESENT: mild distress, well-developed, well-nourished Head exam: PRESENT: atraumatic, normocephalic Eye exam: PRESENT: EOMI, PERRLA. ABSENT: nystagmus, periorbital swelling, scleral icterus Mouth exam: PRESENT: moist. ABSENT: neck supple Throat exam: ABSENT: tonsillar exudate, tonsillogmegaly Neck exam: ABSENT: meningismus, tenderness, thyromegaly Respiratory exam: PRESENT: symmetrical, unlabored. ABSENT: tachypnea, wheezes Cardiovascular exam: PRESENT: RRR, +S1, +S2 GI/Abdominal exam: PRESENT: soft. ABSENT: rebound, rigid, tenderness Extremities exam: ABSENT: joint swelling Musculoskeletal exam: PRESENT: full ROM Neurological exam: PRESENT: alert, awake, oriented to time, oriented to situation, CN II-XII grossly intact Psychiatric exam: PRESENT: appropriate affect Skin exam: PRESENT: normal color. ABSENT: mottled, pallor, petechiae, urticaria , vesicles Results Laboratory Results: 08/09/17 06:06 08/09/17 06:06 08/09/17 08/09/17 06:06 06:06 WBC 7.1 RBC 4.14 Hgb 12.8 Hct 35.9 L MCV 87 MCH 31.0 MCHC 35.7 RDW 13.8 Plt Count 201 Seg Neutrophils % 72.3 Lymphocytes % 15.9 Monocytes % 9.8 Eosinophils % 1.4 Basophils % 0.6 Absolute Neutrophils 5.1 Absolute Lymphocytes 1.1 Absolute Monocytes 0.7 Absolute Eosinophils 0.1 Absolute Basophils 0.0 Sodium 139.9 Potassium 3.7 Chloride 103 Carbon Dioxide 27 Anion Gap 10 BUN 8 Creatinine 0.68 Est GFR ( Amer) > 60 Est GFR (Non-Af Amer) > 60 Glucose 116 H Calcium 8.7 Magnesium 2.1 Impressions: Abdomen/Pelvis CT 08/08/17 14:37 IMPRESSION: 1. Questionable focal thickening of the wall of the gastric antrum. Neoplasm cannot be excluded. 2. Diverticulitis. 3. Small ventral hernia containing only fat. 4. 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 Assessment & Plan - Diagnosis (1) Abnormal CT scan, stomach Is this a current diagnosis for this admission?: Yes Plan: thickening of the patient's tomach ? secondary to diverticulitis vs separate lesion will need EGD Risks, benefits and alternatives are discussed with the patient in detail further recommendations to follow (2) Diverticulitis large intestine Qualifiers: Diverticulitis bleeding: without bleeding Diverticulitis complication: without perforation or abscess Qualified Code(s): K57.32 - Diverticulitis of large intestine without perforation or abscess without bleeding Is this a current diagnosis for this admission?: Yes Plan: continue antibiotics for now previous colonoscopy has been done no need for repeat scope at this point - Time Time Spent: 50 to 70 Minutes
[2017-08-09] MEDS: GABAPENTIN 400 MG CAPSULE PO SCH ×2 (14:59→23:12)
[2017-08-09] MEDS: METRONIDAZOLE 500 MG/NS RTU 100 ML IV SCH ×3 (15:38→23:57)
[2017-08-09] MEDS ORDERED: DEXTROSE 50%-WATER 25 GM/50 ML DISP.SYRIN IV PRN ×2 (15:39)
[2017-08-09] MEDS ORDERED: DEXTROSE 40% GEL 15 GM TUBE PO PRN ×2 (15:39)
[2017-08-09] MEDS ORDERED: GLUCAGON,HUMAN RECOMB 1 MG INJ SUBCUT PRN (15:39)
--- NOTE | 2017-08-09 15:39 | PDOC PROGRESS REPORT ---
Subjective Progress Note for:: 08/09/17 Subjective:: Still having abdominal pain but improved. Physical Exam Vital Signs: Temp Pulse Resp BP Pulse Ox 99.0 F 59 L 15 131/68 H 97 08/09/17 11:46 08/09/17 11:46 08/09/17 11:46 08/09/17 11:46 08/09/17 11:46 Intake & Output 08/08/17 08/09/17 08/10/17 06:59 06:59 06:59 Intake Total 725 120 Output Total 800 Balance -75 120 General appearance: PRESENT: no acute distress, cooperative Respiratory exam: PRESENT: clear to auscultation magi Cardiovascular exam: PRESENT: RRR GI/Abdominal exam: PRESENT: other - Soft, nondistended, focal tenderness at the left mid abdomen with guarding. Remainder of the abdomen is soft and nontender. Extremities exam: PRESENT: other - No tenderness and no swelling Results Laboratory Results: 08/09/17 06:06 08/09/17 06:06 08/09/17 08/09/17 06:06 06:06 WBC 7.1 RBC 4.14 Hgb 12.8 Hct 35.9 L MCV 87 MCH 31.0 MCHC 35.7 RDW 13.8 Plt Count 201 Seg Neutrophils % 72.3 Lymphocytes % 15.9 Monocytes % 9.8 Eosinophils % 1.4 Basophils % 0.6 Absolute Neutrophils 5.1 Absolute Lymphocytes 1.1 Absolute Monocytes 0.7 Absolute Eosinophils 0.1 Absolute Basophils 0.0 Sodium 139.9 Potassium 3.7 Chloride 103 Carbon Dioxide 27 Anion Gap 10 BUN 8 Creatinine 0.68 Est GFR ( Amer) > 60 Est GFR (Non-Af Amer) > 60 Glucose 116 H Calcium 8.7 Magnesium 2.1 Impressions: Abdomen/Pelvis CT 08/08/17 14:37 IMPRESSION: 1. Questionable focal thickening of the wall of the gastric antrum. Neoplasm cannot be excluded. 2. Diverticulitis. 3. Small ventral hernia containing only fat. 4. 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 Assessment & Plan - Diagnosis (1) Diverticulitis large intestine Qualifiers: Diverticulitis bleeding: without bleeding Diverticulitis complication: without perforation or abscess Qualified Code(s): K57.32 - Diverticulitis of large intestine without perforation or abscess without bleeding Is this a current diagnosis for this admission?: Yes Plan: Still having pain and tenderness but improved from admission. Continue conservative measures with antibiotics. Will back off of her diet until the tenderness is markedly improved.
[2017-08-09] MEDS ORDERED: DEXTROSE 5%-NORMAL SALINE 1,000 ML IV PRN (15:41)
--- NOTE | 2017-08-09 16:40 | PDOC PROGRESS REPORT ---
Subjective Progress Note for:: 08/09/17 Subjective:: I have diverticulitis again. This is a 77-year-old female came in complaining the left lower quadrant abdominal pain for the past 2 days. Denies any nausea vomiting diarrhea, constipation, melena, hematochezia, fever or chills. Patient states she has had diverticulitis before and it is similar in nature. I informed her that she had a abnormal CT scan of her stomach she says no I do not not syndrome with I ask her how she noted that she said just because I know. Physical Exam Vital Signs: Temp Pulse Resp BP Pulse Ox 99.0 F 62 14 132/66 H 96 08/09/17 15:26 08/09/17 15:26 08/09/17 15:26 08/09/17 15:26 08/09/17 15:26 Intake & Output 08/08/17 08/09/17 08/10/17 06:59 06:59 06:59 Intake Total 725 120 Output Total 800 Balance -75 120 General appearance: PRESENT: no acute distress, well-developed, well-nourished Head exam: PRESENT: atraumatic, normocephalic Eye exam: PRESENT: conjunctiva pink, EOMI, PERRLA. ABSENT: scleral icterus Ear exam: PRESENT: normal external ear exam Mouth exam: PRESENT: moist, tongue midline Neck exam: ABSENT: carotid bruit, JVD, lymphadenopathy, thyromegaly Respiratory exam: PRESENT: clear to auscultation magi. ABSENT: rales, rhonchi, wheezes Cardiovascular exam: PRESENT: RRR. ABSENT: diastolic murmur, rubs, systolic murmur Pulses: PRESENT: normal dorsalis pedis pul Vascular exam: PRESENT: normal capillary refill GI/Abdominal exam: PRESENT: normal bowel sounds, soft, other - Obese. ABSENT: distended, guarding, mass, organolmegaly, rebound, tenderness Rectal exam: PRESENT: deferred Extremities exam: PRESENT: full ROM. ABSENT: calf tenderness, clubbing, pedal edema Neurological exam: PRESENT: alert, awake, oriented to person, oriented to place , oriented to time, oriented to situation, CN II-XII grossly intact. ABSENT: motor sensory deficit Psychiatric exam: PRESENT: appropriate affect, normal mood. ABSENT: homicidal ideation, suicidal ideation Skin exam: PRESENT: dry, intact, warm. ABSENT: cyanosis, rash Results Laboratory Results: 08/09/17 06:06 08/09/17 06:06 08/09/17 08/09/17 06:06 06:06 WBC 7.1 RBC 4.14 Hgb 12.8 Hct 35.9 L MCV 87 MCH 31.0 MCHC 35.7 RDW 13.8 Plt Count 201 Seg Neutrophils % 72.3 Lymphocytes % 15.9 Monocytes % 9.8 Eosinophils % 1.4 Basophils % 0.6 Absolute Neutrophils 5.1 Absolute Lymphocytes 1.1 Absolute Monocytes 0.7 Absolute Eosinophils 0.1 Absolute Basophils 0.0 Sodium 139.9 Potassium 3.7 Chloride 103 Carbon Dioxide 27 Anion Gap 10 BUN 8 Creatinine 0.68 Est GFR ( Amer) > 60 Est GFR (Non-Af Amer) > 60 Glucose 116 H Calcium 8.7 Magnesium 2.1 Impressions: Abdomen/Pelvis CT 08/08/17 14:37 IMPRESSION: 1. Questionable focal thickening of the wall of the gastric antrum. Neoplasm cannot be excluded. 2. Diverticulitis. 3. Small ventral hernia containing only fat. 4. 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 Assessment & Plan - Diagnosis (1) Abnormal CT scan, stomach Is this a current diagnosis for this admission?: Yes Plan: Patient had a questionable focal thickening of the wall of the gastric antrum. Neoplasm cannot be excluded. I have personally called Dr. Hooper and informed him of the abnormal CT scan in the stomach and that patient may require an upper EGD. She also has a family history her brother in his 50s with stomach cancer, father with pancreatic cancer, mother had dementia (2) Diverticulitis large intestine Qualifiers: Diverticulitis bleeding: without bleeding Diverticulitis complication: without perforation or abscess Qualified Code(s): K57.32 - Diverticulitis of large intestine without perforation or abscess without bleeding Is this a current diagnosis for this admission?: Yes Plan: Continue Zosyn. I have added Flagyl IV. GI consult appreciated. Patient has a history of diverticulitis with perforation but per the CT scan there was no perforation this time (3) Diastolic CHF Qualifiers: Congestive heart failure chronicity: chronic Qualified Code(s): I50.32 - Chronic diastolic (congestive) heart failure Is this a current diagnosis for this admission?: No Plan: Stable continue to monitor careful IV hydration (4) HLD (hyperlipidemia) Qualifiers: Hyperlipidemia type: unspecified Qualified Code(s): E78.5 - Hyperlipidemia , unspecified Is this a current diagnosis for this admission?: Yes (5) HTN (hypertension) Qualifiers: Hypertension type: essential hypertension Qualified Code(s): I10 - Essential (primary) hypertension Is this a current diagnosis for this admission?: Yes Plan: Continue atenolol and losartan per home medication. Patient is on a statin, she is also taking and hydrochlorothiazide (6) Hypothyroid Qualifiers: Hypothyroidism type: unspecified Qualified Code(s): E03.9 - Hypothyroidism , unspecified Is this a current diagnosis for this admission?: Yes - Time Time Spent with patient: 25-34 minutes Medications reviewed and adjusted accordingly: Yes
[2017-08-09] MEDS ORDERED: METHYLPREDNISOLONE INJ 125 MG/2 ML SDV ONE (21:43)
[2017-08-09] MEDS: SIMVASTATIN 10 MG TABLET PO SCH (23:12)
[2017-08-10] MEDS: LANSOPRAZOLE 30 MG TAB.RAP.DR PO SCH (05:28)
[2017-08-10] MEDS: GABAPENTIN 400 MG CAPSULE PO SCH ×3 (05:39→21:20)
[2017-08-10] MEDS: LEVOTHYROXINE SODIUM 0.025 MG TABLET PO SCH (05:39)
[2017-08-10] MEDS: LEVOTHYROXINE SODIUM 0.112 MG TABLET PO SCH (05:39)
[2017-08-10] MEDS: METRONIDAZOLE 500 MG/NS RTU 100 ML IV SCH ×4 (05:39→23:39)
[2017-08-10] MEDS ORDERED: NALOXONE HCL INJ/PF 0.4 MG/1 ML SDV ONE (10:11)
[2017-08-10] MEDS ORDERED: ONDANSETRON HCL INJ/PF 4 MG/2 ML SDV ONE (10:11)
[2017-08-10] MEDS ORDERED: DIPHENHYDRAMINE HCL 50 MG/ML VIAL ONE (10:11)
[2017-08-10] MEDS ORDERED: GLUCAGON,HUMAN RECOMB 1 MG INJ ONE (10:12)
[2017-08-10] MEDS ORDERED: FENTANYL CITRATE INJ/PF 100 MCG/2 ML AMPUL ONE (10:12)
[2017-08-10] MEDS ORDERED: FLUMAZENIL INJ 0.5 MG/5 ML VIAL ONE (10:12)
[2017-08-10] MEDS ORDERED: EPINEPHRINE INJ 1 MG/10 ML DISP.SYRIN ONE (10:12)
[2017-08-10] MEDS: MIDAZOLAM 2 MG/2 ML INJ ONE ×2 (10:38→10:43)
--- NOTE | 2017-08-10 11:50 | Operative Report ---
Operative Report DATE OF SURGERY: 08/10/17 Operative Report: The risks benefits and alternatives of the procedure explained to the patient in detail and informed consent is obtained.A GIF Olympus video scope was inserted into the patient's mouth and hypopharynx, the esophagus is identified intubated and insufflated, the scope was then advanced through the esophagus stomach and duodenum, retroflexion maneuver is done, the esophagus stomach and first and second portions of the duodenum examined PREOPERATIVE DIAGNOSIS: Abnormal CT scan suggesting thickening of the antrum suspicious for mass lesion POSTOPERATIVE DIAGNOSIS: Gastritis status post biopsy rule out Helicobacter pylori OPERATION: EGD with biopsy SURGEON: ABHISHEK TOMPKINS ANESTHESIA: Moderate Sedation - Folic acid Versed, 50 mcg of fentanyl. Conscious sedation monitoring time 30 minutes. TISSUE REMOVED OR ALTERED: Gastric mucosal specimen obtained COMPLICATIONS: None. ESTIMATED BLOOD LOSS: None. INTRAOPERATIVE FINDINGS: As noted above. PROCEDURE: Patient tolerated the procedure well. No immediate postprocedure complications are noted. Patient is sent back to her room in good condition. Resume previous diet. Resume previous activity level. We will wait on biopsies. She likely had diverticulitis on the right side of the colon and with secondary inflammation was probably the reason for the abnormal CAT scan. We will see as outpatient.
[2017-08-10] MEDS: EZETIMIBE 10 MG TABLET PO SCH (12:32)
[2017-08-10] MEDS: DULOXETINE HCL 30 MG CAPSULE.DR PO SCH (12:33)
[2017-08-10] MEDS: LOSARTAN POTASSIUM 50 MG TABLET PO SCH (12:34)
[2017-08-10] MEDS: CYANOCOBALAMIN (VITAMIN B-12) 1,000 MCG TABLET PO SCH (12:34)
[2017-08-10] MEDS: HYDROCHLOROTHIAZIDE 12.5 MG CAPSULE PO SCH (12:35)
[2017-08-10] MEDS: ATENOLOL 50 MG TABLET PO SCH (12:36)
[2017-08-10] MEDS: ENOXAPARIN SODIUM INJ 40 MG/0.4 ML DISP.SYRIN SUBCUT SCH (12:37)
[2017-08-10] MEDS: LEVOFLOXACIN 500 MG/D5W RTU 500 MG/100 ML RTUPB IV SCH (12:45)
--- NOTE | 2017-08-10 17:19 | PDOC PROGRESS REPORT ---
Subjective Progress Note for:: 08/10/17 Subjective:: I have diverticulitis again. This is a 77-year-old female came in complaining the left lower quadrant abdominal pain for the past 2 days. Denies any nausea vomiting diarrhea, constipation, melena, hematochezia, fever or chills. Patient states she has had diverticulitis before and it is similar in nature. I informed her that she had a abnormal CT scan of her stomach she says no I do not not syndrome with I ask her how she noted that she said just because I know. Physical Exam Vital Signs: Temp Pulse Resp BP Pulse Ox 98.1 F 58 L 18 131/65 H 100 08/10/17 16:02 08/10/17 16:02 08/10/17 16:02 08/10/17 16:02 08/10/17 16:02 Intake & Output 08/09/17 08/10/17 08/11/17 06:59 06:59 06:59 Intake Total 725 2861 100 Output Total 800 750 Balance -75 2111 100 General appearance: PRESENT: no acute distress, well-developed, well-nourished Head exam: PRESENT: atraumatic, normocephalic Eye exam: PRESENT: conjunctiva pink, EOMI, PERRLA. ABSENT: scleral icterus Ear exam: PRESENT: normal external ear exam Mouth exam: PRESENT: moist, tongue midline Neck exam: ABSENT: carotid bruit, JVD, lymphadenopathy, thyromegaly Respiratory exam: PRESENT: clear to auscultation magi. ABSENT: rales, rhonchi, wheezes Cardiovascular exam: PRESENT: RRR. ABSENT: diastolic murmur, rubs, systolic murmur Pulses: PRESENT: normal dorsalis pedis pul Vascular exam: PRESENT: normal capillary refill GI/Abdominal exam: PRESENT: normal bowel sounds, soft, other - Obese. ABSENT: distended, guarding, mass, organolmegaly, rebound, tenderness Rectal exam: PRESENT: deferred Extremities exam: PRESENT: full ROM. ABSENT: calf tenderness, clubbing, pedal edema Neurological exam: PRESENT: alert, awake, oriented to person, oriented to place , oriented to time, oriented to situation, CN II-XII grossly intact. ABSENT: motor sensory deficit Psychiatric exam: PRESENT: appropriate affect, normal mood. ABSENT: homicidal ideation, suicidal ideation Skin exam: PRESENT: dry, intact, warm. ABSENT: cyanosis, rash Results Laboratory Results: 08/09/17 06:06 08/09/17 06:06 Impressions: Abdomen/Pelvis CT 08/08/17 14:37 IMPRESSION: 1. Questionable focal thickening of the wall of the gastric antrum. Neoplasm cannot be excluded. 2. Diverticulitis. 3. Small ventral hernia containing only fat. 4. 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 Patient had an EGD done today with a gastric biopsy to rule out H. pylori. Patient had an EGD done today with a gastric biopsy to rule out H. pylori. Her doctor ZACHERY PASCAL suspect that the right side of the colon with secondary inflammation was the reason she had an abnormal CT scan but they will wait on biopsies. Patient tolerated the procedure well will advance diet continue IV antibiotics for 1 more day anticipate discharge home tomorrowPer Dr. Hooper suspect that the right side of the colon with secondary inflammation was the reason she had an abnormal CT scan but they will wait on biopsies. Patient tolerated the procedure well will advance diet continue IV antibiotics for 1 more day anticipate discharge home tomorrow Assessment & Plan - Diagnosis (1) Abnormal CT scan, stomach Is this a current diagnosis for this admission?: Yes Plan: Patient had a questionable focal thickening of the wall of the gastric antrum. Neoplasm cannot be excluded. I have personally called Dr. Hooper and informed him of the abnormal CT scan in the stomach and that patient may require an upper EGD. She also has a family history her brother in his 50s with stomach cancer, father with pancreatic cancer, mother had dementia (2) Diverticulitis large intestine Qualifiers: Diverticulitis bleeding: without bleeding Diverticulitis complication: without perforation or abscess Qualified Code(s): K57.32 - Diverticulitis of large intestine without perforation or abscess without bleeding Is this a current diagnosis for this admission?: Yes Plan: Continue Zosyn. I have added Flagyl IV. GI consult appreciated. Patient has a history of diverticulitis with perforation but per the CT scan there was no perforation this time (3) Diastolic CHF Qualifiers: Congestive heart failure chronicity: chronic Qualified Code(s): I50.32 - Chronic diastolic (congestive) heart failure Is this a current diagnosis for this admission?: No Plan: Stable continue to monitor careful IV hydration (4) HLD (hyperlipidemia) Qualifiers: Hyperlipidemia type: unspecified Qualified Code(s): E78.5 - Hyperlipidemia , unspecified Is this a current diagnosis for this admission?: Yes (5) HTN (hypertension) Qualifiers: Hypertension type: essential hypertension Qualified Code(s): I10 - Essential (primary) hypertension Is this a current diagnosis for this admission?: Yes Plan: Continue atenolol and losartan per home medication. Patient is on a statin, she is also taking and hydrochlorothiazide (6) Hypothyroid Qualifiers: Hypothyroidism type: unspecified Qualified Code(s): E03.9 - Hypothyroidism , unspecified Is this a current diagnosis for this admission?: Yes - Time Time Spent with patient: 15-24 minutes Medications reviewed and adjusted accordingly: Yes Anticipated discharge: Home Within: within 24 hours
--- NOTE | 2017-08-10 20:46 | PDOC PROGRESS REPORT ---
Subjective Progress Note for:: 08/10/17 Subjective:: Patient feels much better today. Tolerated her EGD without difficulty. She voices no complaints or concerns at this time. Physical Exam Vital Signs: Temp Pulse Resp BP Pulse Ox 98.4 F 58 L 19 125/70 100 08/10/17 19:30 08/10/17 19:30 08/10/17 19:30 08/10/17 19:30 08/10/17 19:30 Intake & Output 08/09/17 08/10/17 08/11/17 06:59 06:59 06:59 Intake Total 725 2861 816 Output Total 800 750 600 Balance -75 2111 216 Results Laboratory Results: 08/09/17 06:06 08/09/17 06:06 Impressions: Abdomen/Pelvis CT 08/08/17 14:37 IMPRESSION: 1. Questionable focal thickening of the wall of the gastric antrum. Neoplasm cannot be excluded. 2. Diverticulitis. 3. Small ventral hernia containing only fat. 4. 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 Assessment & Plan - Diagnosis (1) Diverticulitis large intestine Qualifiers: Diverticulitis bleeding: without bleeding Diverticulitis complication: without perforation or abscess Qualified Code(s): K57.32 - Diverticulitis of large intestine without perforation or abscess without bleeding Is this a current diagnosis for this admission?: Yes Plan: She was placed on clear liquids after her EGD. She has tolerated this without difficulty or problems. Oral intake has not used pain. Will reassess tomorrow and discuss advancing her diet.
[2017-08-10] MEDS: SIMVASTATIN 10 MG TABLET PO SCH (21:20)
[2017-08-11 05:00] LABS: ABSOLUTE EOSINOPHILS # (AUTO) 0.1 10^3/uL (0.0-0.6); ABSOLUTE LYMPHOCYTES (AUTO) 1.1 10^3/uL (0.5-4.7); ABSOLUTE MONOCYTES (AUTO) 0.5 10^3/uL (0.1-1.4); ABSOLUTE NEUT (AUTO) 4.3 10^3/uL (1.7-8.2); BASOPHILS % (AUTO) 0.6 % (0-2); HEMATOCRIT 34.8 % (36.0-47.0); HEMOGLOBIN 12.6 g/dL (12.0-15.5); LYMPHOCYTES % (AUTO) 18.6 % (13-45); MEAN CORPUSCULAR HEMOGLOBIN 31.2 pg (27.0-33.4); MEAN CORPUSCULAR HGB CONC 36.1 g/dL (32.0-36.0); MEAN CORPUSCULAR VOLUME 87 fl (80-97); MONOCYTES % (AUTO) 8.5 % (3-13); RED BLOOD COUNT 4.02 10^6/uL (3.72-5.28); RED CELL DISTRIBUTION WIDTH 13.7 % (11.5-14.0); SEGMENTED NEUTROPHILS % (AUTO) 70.3 % (42-78); WHITE BLOOD COUNT 6.1 10^3/uL (4.0-10.5)
[2017-08-11 05:13] LABS: ANION GAP 9 (5-19); BLOOD UREA NITROGEN 6 mg/dL (7-20); CARBON DIOXIDE 29 mmol/L (22-30); CHLORIDE 105 mmol/L (98-107); CREATININE RESULT 0.61 mg/dL (0.52-1.25); GLUCOSE 110 mg/dL (75-110); POTASSIUM 3.3 mmol/L (3.6-5.0)
[2017-08-11] MEDS: LEVOTHYROXINE SODIUM 0.112 MG TABLET PO SCH (05:39)
[2017-08-11] MEDS: LANSOPRAZOLE 30 MG TAB.RAP.DR PO SCH (05:39)
[2017-08-11] MEDS: LEVOTHYROXINE SODIUM 0.025 MG TABLET PO SCH (05:39)
[2017-08-11] MEDS: METRONIDAZOLE 500 MG/NS RTU 100 ML IV SCH (05:39)
[2017-08-11] MEDS: GABAPENTIN 400 MG CAPSULE PO SCH (05:39)
[2017-08-11] MEDS: ENOXAPARIN SODIUM INJ 40 MG/0.4 ML DISP.SYRIN SUBCUT SCH (09:45)
[2017-08-11] MEDS: EZETIMIBE 10 MG TABLET PO SCH (09:49)
[2017-08-11] MEDS: DULOXETINE HCL 30 MG CAPSULE.DR PO SCH (09:49)
[2017-08-11] MEDS: CYANOCOBALAMIN (VITAMIN B-12) 1,000 MCG TABLET PO SCH (09:49)
[2017-08-11] MEDS: LOSARTAN POTASSIUM 50 MG TABLET PO SCH (09:50)
[2017-08-11] MEDS: HYDROCHLOROTHIAZIDE 12.5 MG CAPSULE PO SCH (09:50)
[2017-08-11] MEDS: ATENOLOL 50 MG TABLET PO SCH (09:53)
[2017-08-11] MEDS: LEVOFLOXACIN 500 MG/D5W RTU 500 MG/100 ML RTUPB IV SCH (09:54)
[2017-08-11] MEDS ORDERED: INFLUENZA ADLT QUAD (36MOS+) 2017-18 VAC 0.5 ML SYR IM PRN (11:52)
[2017-08-11 12:05] VITALS: BP 134/66
--- NOTE | 2017-08-11 12:47 | PDOC DISCHARGE SUMMARY ---
General - Admit/Disc Date/PCP Admission Date/Primary Care Provider: 08/08/17 22:57 AYLA KIM MD Discharge Date: 08/11/17 - Discharge Diagnosis (1) Diverticulitis large intestine Is this a current diagnosis for this admission?: Yes Summary: Managed for acute diverticulitis in her large intestines on right and left side (2) Abnormal CT scan, stomach Is this a current diagnosis for this admission?: Yes Summary: Patient had a EGD with biopsies to rule out H. pylori and/or neoplasm. Follow- up with GI outpatient for results (3) Diastolic CHF Is this a current diagnosis for this admission?: No Summary: Continue home medications no new changes were made no acute CHF was seen during this hospitalization. (4) HLD (hyperlipidemia) Is this a current diagnosis for this admission?: Yes Summary: Continue statin (5) HTN (hypertension) Is this a current diagnosis for this admission?: Yes Summary: We continue patient's home medications for hypertension no new recommendations or changes were made. (6) Hypothyroid Is this a current diagnosis for this admission?: Yes - Additional Information Resuscitation Status: Full Code Discharge Activity: Activity As Tolerated Home Medications: Atenolol 50 mg PO DAILY 12/28/16 Cetirizine HCl [Zyrtec] 10 mg PO DAILY PRN 12/28/16 Cyanocobalamin (Vitamin B-12) [Vitamin B-12 500 mcg Tablet] 500 mcg PO DAILY 07/08 Ezetimibe [Zetia 10 mg Tablet] 10 mg PO DAILY 12/28/16 Gabapentin [Neurontin] 800 mg PO TID 12/28/16 Levothyroxine Sodium [Synthroid] 137 mcg PO DAILY 12/28/16 Simvastatin [Zocor 20 mg Tablet] 20 mg PO QHS 12/28/16 Duloxetine HCl [Cymbalta] 60 mg PO DAILY 05/09/17 Ezetimibe [Zetia 10 mg Tablet] 10 mg PO DAILY 08/08/17 Hydrochlorothiazide [Hydrodiuril 12.5 mg Capsule] 12.5 mg PO DAILY 08/08/17 Losartan Potassium [Cozaar 100 mg Tablet] 100 mg PO DAILY 08/08/17 Acetaminophen [Tylenol 325 mg Tablet] 650 mg PO Q4HP PRN tablet 08/11/17 Ciprofloxacin HCl [Cipro 500 mg Tablet] 500 mg PO BID #20 tablet 08/11/17 Lansoprazole [Prevacid 30 mg Odt Tablet] 30 mg PO Q6AM 30 Days #30 tab. Metronidazole [Flagyl 500 mg Tablet] 500 mg PO TID #21 tablet 08/11/17 History of Present Illness History of Present Illness: CARRI BUSH is a 77 year old female who was admitted for diverticulitis without perforation. Patient had several days of acute abdominal pain. She was admitted for diverticulitis confirmed via CT scan without evidence of perforation. Also she had an abnormal scan of her stomach which showed an area of possible inflammation versus could not exclude neoplasm. Some patient underwent an EGD on August 10, 2017 per the family they state the she did well with the EGD and biopsies are pending. Recommend follow-up with GI outpatient for the results of this study. CT scan also showed a small ventral hernia containing only fat. And arthrosclerosis with narrowing of the origin of the right renal artery. While in the hospital patient did have a GI consult in which he suspected that questionable focal thickening of the wall of the gastric antrum could be possibly secondary from the inflammation of her right side of the colon. She did have biopsies to rule out H. pylori as well. Per GIs note they had recommended patient to have surgery for her diverticula. Patient was encouraged to eat a high-fiber diet, personally recommend Citrucel daily, avoid constipation, and to notify her primary care soon as possible if her pain returns. Continue oral Cipro and Flagyl for 1 more week. Follow-up primary care physician within the week and outpatient GI per their appointment. Physical Exam Vital Signs: Temp Pulse Resp BP Pulse Ox 98.0 F 64 18 134/66 H 99 08/11/17 12:02 08/11/17 12:02 08/11/17 12:02 08/11/17 12:02 08/11/17 12:02 Intake & Output 08/10/17 08/11/17 08/12/17 06:59 06:59 06:59 Intake Total 2861 2876 Output Total 750 1500 Balance 2111 1376 General appearance: PRESENT: no acute distress, well-developed, well-nourished Head exam: PRESENT: atraumatic, normocephalic Eye exam: PRESENT: conjunctiva pink, EOMI, PERRLA. ABSENT: scleral icterus Ear exam: PRESENT: normal external ear exam Mouth exam: PRESENT: moist, tongue midline Neck exam: ABSENT: carotid bruit, JVD, lymphadenopathy, thyromegaly Respiratory exam: PRESENT: clear to auscultation magi. ABSENT: rales, rhonchi, wheezes Cardiovascular exam: PRESENT: RRR. ABSENT: diastolic murmur, rubs, systolic murmur Pulses: PRESENT: normal dorsalis pedis pul Vascular exam: PRESENT: normal capillary refill GI/Abdominal exam: PRESENT: normal bowel sounds, soft. ABSENT: distended, guarding, mass, organolmegaly, rebound, tenderness Rectal exam: PRESENT: deferred Extremities exam: PRESENT: full ROM. ABSENT: calf tenderness, clubbing, pedal edema Neurological exam: PRESENT: alert, awake, oriented to person, oriented to place , oriented to time, oriented to situation, CN II-XII grossly intact. ABSENT: motor sensory deficit Psychiatric exam: PRESENT: appropriate affect, normal mood. ABSENT: homicidal ideation, suicidal ideation Skin exam: PRESENT: dry, intact, warm. ABSENT: cyanosis, rash Results Laboratory Results: 08/11/17 04:28 08/11/17 04:28 08/11/17 08/11/17 04:28 04:28 WBC 6.1 RBC 4.02 Hgb 12.6 Hct 34.8 L MCV 87 MCH 31.2 MCHC 36.1 H RDW 13.7 Plt Count 208 Seg Neutrophils % 70.3 Lymphocytes % 18.6 Monocytes % 8.5 Eosinophils % 2.0 Basophils % 0.6 Absolute Neutrophils 4.3 Absolute Lymphocytes 1.1 Absolute Monocytes 0.5 Absolute Eosinophils 0.1 Absolute Basophils 0.0 Sodium 143.0 Potassium 3.3 L Chloride 105 Carbon Dioxide 29 Anion Gap 9 BUN 6 L Creatinine 0.61 Est GFR ( Amer) > 60 Est GFR (Non-Af Amer) > 60 Glucose 110 Calcium 9.0 Impressions: Abdomen/Pelvis CT 08/08/17 14:37 IMPRESSION: 1. Questionable focal thickening of the wall of the gastric antrum. Neoplasm cannot be excluded. 2. Diverticulitis. 3. Small ventral hernia containing only fat. 4. 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 Plan Time Spent: Less than 30 Minutes
== END 2017-08-11 12:33 | disposition home or self-care (01) | DRG 392 ==
LOC: ER 13:57 → EH 20:19 → UNDOADMIN 20:19 → 4S 21:56 → EH 21:56 → 4S 22:57
PROVIDERS: ADMIT Family Medicine; ATTEND Family Medicine
DX: K57.32 Diverticulitis of large intestine without perforation or abscess without bleeding (principal); I50.32 Chronic diastolic (congestive) heart failure; I11.0 Hypertensive heart disease with heart failure; K44.9 Diaphragmatic hernia without obstruction or gangrene; M19.90 Unspecified osteoarthritis, unspecified site; F17.210 Nicotine dependence, cigarettes, uncomplicated; Z88.2 Allergy status to sulfonamides; Z88.6 Allergy status to analgesic agent; Z88.8 Allergy status to other drugs, medicaments and biological substances; Z90.49 Acquired absence of other specified parts of digestive tract
CPT/HCPCS: 36415; 43239; 74177; 80048; 80053; 81001; 82962; 83735; 84443; 85025; 88305; 88342; 96365; 96375; 99285; J0171; J1170; J1200; J1610; J1650; J1956; J2250; J2310; J2405; J2543; J3010; J3475; J3490; J7030

== ENCOUNTER 2017-09-19 07:31 | Day surgery (SDC) | payer MEDICARE, OTHER ==
[~2017-09-19 07:31] MED LIST changes: -BUPIVACAINE HCL 0.75% INJ/PF (7.5 MG/1 ML) 10 ML SDV OD PRN; +DIPHENHYDRAMINE HCL 50 MG/ML VIAL ONE; +EPINEPHRINE INJ 1 MG/10 ML DISP.SYRIN ONE; +FLUMAZENIL INJ 0.5 MG/5 ML VIAL ONE; +GLUCAGON,HUMAN RECOMB 1 MG INJ ONE; -KETOROLAC TROMETHAMINE 0.45% 4 DROP/0.4 ML DROPERETTE OD PRN; +NALOXONE HCL INJ/PF 0.4 MG/1 ML SDV ONE; +ONDANSETRON HCL INJ/PF 4 MG/2 ML SDV ONE
[2017-09-19] MEDS: MIDAZOLAM 2 MG/2 ML INJ ONE ×3 (08:04→08:10)
[2017-09-19] MEDS: FENTANYL CITRATE INJ/PF 100 MCG/2 ML AMPUL ONE ×4 (08:06→08:12)
--- NOTE | 2017-09-19 08:28 | Operative Report ---
Operative Report DATE OF SURGERY: 09/19/17 Operative Report: The risks benefits and alternatives of the procedure explained to the patient in detail and informed consent is obtained.A GIF Olympus video scope was inserted into the patient's mouth and hypopharynx, the esophagus is identified intubated and insufflated, the scope was then advanced through the esophagus stomach and duodenum, retroflexion maneuver is done, the esophagus stomach and first and second portions of the duodenum examined PREOPERATIVE DIAGNOSIS: History of Card's esophagus POSTOPERATIVE DIAGNOSIS: Card's esophagus status post ablation. Nodular gastritis status post biopsy rule out Helicobacter pylori OPERATION: EGD with ablation. EGD with biopsy SURGEON: ABHISHEK TOMPKINS ANESTHESIA: Moderate Sedation - 3 mg of Versed, 75 mcg of fentanyl. Conscious sedation monitoring time 30 minutes. TISSUE REMOVED OR ALTERED: Gastric mucosal specimen obtained to rule out Helicobacter pylori COMPLICATIONS: None. ESTIMATED BLOOD LOSS: None. INTRAOPERATIVE FINDINGS: As noted above. PROCEDURE: Patient tolerated procedure well. No immediate postprocedure complications are noted. Patient discharged in good condition. Discharge date 09/19/2017. Discharge diet: Regular. Discharge activity: Regular. 2-3 week follow-up to discuss findings. Patient is instructed to call the office or proceed to the emergency room should there be any further problems or questions.
[2017-09-19 10:37] VITALS: BP 108/67
== END 2017-09-19 09:25 | disposition home or self-care (01) ==
LOC: END 07:31
PROVIDERS: ATTEND Internal Medicine Gastroenterology
PROC: 0DB68ZX Excision of Stomach, Via Natural or Artificial Opening Endoscopic, Diagnostic (ICD-10-PCS; principal; 2017-09-19 08:00)
PROC: 0D558ZZ Destruction of Esophagus, Via Natural or Artificial Opening Endoscopic (ICD-10-PCS; 2017-09-19 08:00)
DX: K22.719 Barrett's esophagus with dysplasia, unspecified (principal); K29.50 Unspecified chronic gastritis without bleeding; K21.9 Gastro-esophageal reflux disease without esophagitis; G62.9 Polyneuropathy, unspecified; E03.9 Hypothyroidism, unspecified; E78.5 Hyperlipidemia, unspecified; I10 Essential (primary) hypertension; E53.0 Riboflavin deficiency; I87.2 Venous insufficiency (chronic) (peripheral); Z79.899 Other long term (current) drug therapy; Z88.2 Allergy status to sulfonamides; Z88.8 Allergy status to other drugs, medicaments and biological substances; Z88.5 Allergy status to narcotic agent; Z86.010 Personal history of colon polyps
CPT/HCPCS: 43270; 43239; 88342 ×2; 88305 ×2; J2250; J3010; J0171; J1200; J1610; J2310; J2405; J3490

== ENCOUNTER → 2018-01-16 | Outpatient (CLI) | payer MEDICARE, OTHER ==
[~2018-01-16] MED LIST changes: +ALBUTEROL SULFATE 0.083% NEB 2.5 MG/3 ML AMPUL NEB ONE; -DIPHENHYDRAMINE HCL 50 MG/ML VIAL ONE; -EPINEPHRINE INJ 1 MG/10 ML DISP.SYRIN ONE; -FLUMAZENIL INJ 0.5 MG/5 ML VIAL ONE; -GLUCAGON,HUMAN RECOMB 1 MG INJ ONE; -NALOXONE HCL INJ/PF 0.4 MG/1 ML SDV ONE; -ONDANSETRON HCL INJ/PF 4 MG/2 ML SDV ONE
--- NOTE | 2018-01-16 10:36 | RADIOLOGY REPORT (SQ) ---
EXAM DESCRIPTION: CHEST PA/LAT COMPLETED DATE/TIME: 01/16/2018 9:23 am REASON FOR STUDY: SOB (R06.02) COMPARISON: None. EXAM PARAMETERS: NUMBER OF VIEWS: two views TECHNIQUE: Digital Frontal and Lateral radiographic views of the chest acquired. RADIATION DOSE: NA LIMITATIONS: none FINDINGS: LUNGS AND PLEURA: Chronic interstitial changes. No effusions. MEDIASTINUM AND HILAR STRUCTURES: No masses or contour abnormalities. HEART AND VASCULAR STRUCTURES: Heart normal size. No evidence for failure. BONES: No acute findings. HARDWARE: None in the chest. OTHER: No other significant finding. IMPRESSION: NO ACUTE RADIOGRAPHIC FINDING IN THE CHEST. TECHNICAL DOCUMENTATION: JOB ID: [id number] [employer]- All Rights Reserved Reading location - IP/workstation name: [email or web address]
--- NOTE | 2018-01-21 08:34 | PULMONARY FUNCTION TEST ---
DATE OF SERVICE: 01/16/2018 THE VITAL CAPACITY IS SLIGHTLY DECREASED. THE EXPIRATORY FLOW RATES ARE SLIGHTLY DECREASED. THE FEV1/VC IS 68%, PREDICTED: 80% AFTER BRONCHODILATOR, EXPIRATORY FLOW RATES SHOW NO SIGNIFICANT CHANGE. IMPRESSION: GOOD PATIENT EFFORT. SLIGHT OBSTRUCTIVE DEFECT. CC: AYLA KIM MD > ANANDD
== END ==
LOC: RT 08:08
PROVIDERS: ATTEND Family Medicine
DX: R06.02 Shortness of breath (principal)
CPT/HCPCS: 71046; 94060 ×2; A9270

== ENCOUNTER → 2018-06-07 | Outpatient (CLI) | payer MEDICARE, OTHER ==
[2018-06-07 13:56] LABS: ABSOLUTE EOSINOPHILS # (AUTO) 0.1 10^3/uL (0.0-0.6); ABSOLUTE LYMPHOCYTES (AUTO) 1.1 10^3/uL (0.5-4.7); ABSOLUTE MONOCYTES (AUTO) 0.7 10^3/uL (0.1-1.4); ABSOLUTE NEUT (AUTO) 6.6 10^3/uL (1.7-8.2); BASOPHILS % (AUTO) 0.2 % (0-2); EOSINOPHILS % (AUTO) 0.9 % (0-6); HEMATOCRIT 40.4 % (36.0-47.0); HEMOGLOBIN 13.9 g/dL (12.0-15.5); LYMPHOCYTES % (AUTO) 12.6 % (13-45); MEAN CORPUSCULAR HEMOGLOBIN 29.9 pg (27.0-33.4); MEAN CORPUSCULAR HGB CONC 34.3 g/dL (32.0-36.0); MEAN CORPUSCULAR VOLUME 87 fl (80-97); MONOCYTES % (AUTO) 7.9 % (3-13); PLATELET COUNT 247 10^3/uL (150-450); RED BLOOD COUNT 4.65 10^6/uL (3.72-5.28); RED CELL DISTRIBUTION WIDTH 14.6 % (11.5-14.0); SEGMENTED NEUTROPHILS % (AUTO) 78.4 % (42-78); TOTAL CELLS COUNTED % (AUTO) 100 %; WHITE BLOOD COUNT 8.4 10^3/uL (4.0-10.5)
[2018-06-07 14:18] LABS: ALANINE AMINOTRANSFERASE 23 U/L (9-52); ALBUMIN 3.8 g/dL (3.5-5.0); ALKALINE PHOSPHATASE 99 U/L (38-126); ANION GAP 15 (5-19); ASPARTATE AMINO TRANSFERASE 22 U/L (14-36); BILIRUBIN,DIRECT 0.3 mg/dL (0.0-0.4); BILIRUBIN,TOTAL 0.4 mg/dL (0.2-1.3); BLOOD UREA NITROGEN 14 mg/dL (7-20); CALCIUM 9.2 mg/dL (8.4-10.2); CARBON DIOXIDE 25 mmol/L (22-30); CHLORIDE 106 mmol/L (98-107); CHOLESTEROL 144.45 mg/dL (0-200); GLUCOSE 117 mg/dL (75-110); POTASSIUM 3.7 mmol/L (3.6-5.0); SODIUM 145.6 mmol/L (137-145); TOTAL PROTEIN 6.7 g/dL (6.3-8.2); TRIGLYCERIDES 261 mg/dL (<150)
[2018-06-07 14:30] LABS: DIRECT LDL 68 mg/dL (<100)
[2018-06-07 14:31] LABS: VLDL CHOLESTEROL 52.2 mg/dL (10-31)
[2018-06-07 14:35] LABS: FREE T3 2.46 pg/mL (2.77-5.27); FREE T4 (FREE THYROXINE) 0.93 ng/dL (0.78-2.19)
[2018-06-07 14:49] LABS: THYROID STIMULATING HORMONE 7.43 uIU/mL (0.47-4.68)
== END ==
LOC: OD 13:15
PROVIDERS: ATTEND Family Medicine
DX: E53.8 Deficiency of other specified B group vitamins (principal); E78.5 Hyperlipidemia, unspecified; E03.9 Hypothyroidism, unspecified; Z79.899 Other long term (current) drug therapy
CPT/HCPCS: 36415; 80053; 80061; 82607; 84439; 84443; 84481; 85025

== ENCOUNTER → 2018-06-25 | Outpatient (CLI) | payer MEDICARE, OTHER | LOC: OD 14:12 | PROVIDERS: ATTEND Surgery | DX: N63.10 Unspecified lump in the right breast, unspecified quadrant (principal); C50.511 Malignant neoplasm of lower-outer quadrant of right female breast | CPT/HCPCS: 88305; 88341; 88342 ==

== ENCOUNTER 2018-07-31 09:55 | Day surgery (SDC) | payer MEDICARE, OTHER ==
[2018-07-25 11:15] LABS: HEMATOCRIT 39.5 % (36.0-47.0); HEMOGLOBIN 13.9 g/dL (12.0-15.5); MEAN CORPUSCULAR HEMOGLOBIN 30.6 pg (27.0-33.4); MEAN CORPUSCULAR HGB CONC 35.2 g/dL (32.0-36.0); MEAN CORPUSCULAR VOLUME 87 fl (80-97); PLATELET COUNT 236 10^3/uL (150-450); RED BLOOD COUNT 4.56 10^6/uL (3.72-5.28); RED CELL DISTRIBUTION WIDTH 14.4 % (11.5-14.0); WHITE BLOOD COUNT 7.3 10^3/uL (4.0-10.5)
[2018-07-25 11:41] LABS: ANION GAP 12 (5-19); BLOOD UREA NITROGEN 14 mg/dL (7-20); CALCIUM 9.3 mg/dL (8.4-10.2); CARBON DIOXIDE 28 mmol/L (22-30); CHLORIDE 98 mmol/L (98-107); GLUCOSE 108 mg/dL (75-110); POTASSIUM 4.2 mmol/L (3.6-5.0); SODIUM 138.2 mmol/L (137-145)
--- NOTE | 2018-07-25 20:26 | EKG REPORT ---
SEVERITY:- ABNORMAL ECG - SINUS RHYTHM FIRST DEGREE AV BLOCK PROBABLE INFERIOR INFARCT, OLD : Confirmed by: Iris Michaud 25-Jul-2018 20:26:25
[~2018-07-31 09:55] MED LIST changes: -ALBUTEROL SULFATE 0.083% NEB 2.5 MG/3 ML AMPUL NEB ONE; +CEFAZOLIN 1 GM/D5W RTU 1 GM/50 ML RTUPB IV ONE; +CEFAZOLIN 1 GM/D5W RTU 1 GM/50 ML RTUPB IV PRN; +LACTATED RINGERS 1000 ML IV PRN; +LIDOCAINE 0.5% INJ-PF (5 MG/ML) 50 ML SDV SUBCUT PRN; +LIDOCAINE 4% TRANSPARENT DRESSING 5 GM KIT ONE
[2018-07-31] MEDS ORDERED: SUCCINYLCHOLINE CHLORIDE INJ 200 MG/10 ML VIAL ONE (10:18)
[2018-07-31] MEDS ORDERED: PHENYLEPHRINE HCL INJ/PF 10 MG/1 ML SDV ONE (10:18)
[2018-07-31] MEDS ORDERED: ROCURONIUM BROMIDE INJ 50 MG/5 ML VIAL IV ONE (10:18)
[2018-07-31] MEDS ORDERED: GLYCOPYRROLATE 1 MG/5 ML SYRINGE ONE (10:18)
[2018-07-31] MEDS ORDERED: MICROFIBRILLAR COLLAGEN 1 GM PACK ONE (12:40)
[2018-07-31] MEDS ORDERED: METHYLENE BLUE 50 MG/10 ML AMPULE ONE (12:40)
[2018-07-31] MEDS ORDERED: LIDOCAINE 1%/EPINEPHRINE INJ 20 ML VIAL ONE (12:40)
--- NOTE | 2018-07-31 13:24 | RADIOLOGY REPORT (SQ) ---
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 The route of agent administration: Subcutaneous in the skin. TECHNIQUE: The skin of the right breast was prepped in sterile fashion. The radiopharmaceutical was administered in equally divided doses in the periareolar breast. LIMITATIONS: None. FINDINGS: Images demonstrate activity at the injection site. IMPRESSION: ADMINISTRATION OF RADIOPHARMACEUTICAL FOR SENTINEL LYMPH NODE EVALUATION. TECHNICAL DOCUMENTATION: JOB ID: [id number] [employer]- All Rights Reserved Reading location - IP/workstation name: [email or web address]
[2018-07-31] MEDS ORDERED: FENTANYL CITRATE INJ/PF 250 MCG/5 ML AMPULE ONE (13:28)
[2018-07-31] MEDS ORDERED: PROPOFOL INJ 200 MG/20 ML VIAL IV ONE (13:28)
[2018-07-31] MEDS ORDERED: MIDAZOLAM 2 MG/2 ML INJ ONE (13:28)
[2018-07-31] MEDS ORDERED: DIPHENHYDRAMINE HCL 50 MG/ML VIAL IV PRN (14:04)
[2018-07-31] MEDS ORDERED: PROMETHAZINE HCL INJ 25 MG/1 ML VIAL IV PRN ×2 (14:04)
[2018-07-31] MEDS ORDERED: MEPERIDINE HCL/PF INJ 25 MG/1 ML DISP.SYRIN IV PRN (14:04)
--- NOTE | 2018-07-31 15:26 | Discharge Summary ---
Discharge Summary (SDC) - Discharge Final Diagnosis: Right breast cancer Date of Surgery: 07/31/18 Discharge Date: 07/31/18 Condition: Stable Treatment or Instructions: [facility] [address] [place] [id number] Care Instructions Following Your Lumpectomy Activities: Resume normal activities when you feel comfortable. It is best to remain as active as possible to speed your recovery. It is common to experience some fatigue after surgery and you may find that short naps are helpful. Avoid strenuous activity such as weight lifting, tennis, etc at your surgical site for two weeks. Perform gentle arm exercises daily and do not favor your operative arm to due increased risk of mobility issues postoperatively. No driving for 7 days after surgery. Do not drive if you are taking pain medication other than Tylenol or Ibuprofen. No swimming, tub baths or soaking in a hot tub for 4 weeks. There are no dietary restrictions. Do not smoke as this impairs wound healing. Surgical Site care: You may shower after 24 hours, washing the wound with soap and water using your hands. Do not scrub the incision. Pat the area dry with a towel. Leave skin glue intact, it will fall off on its own in several weeks. You do not need to recover the wound although some patients find that they feel more comfortable using a light dressing for a few days to absorb any minimal drainage which may occur. Many patients also find that keeping a dressing around the drain exit site is helpful to absorb any drainage which may leak around the tubing. If you use a dressing in this manner change it at least every day. Do not use heating pad or apply an ice pack to the operative site. You may apply deodorant if you are careful to avoid getting it on the wound itself. Empty the bulbs attached to the drain every 12 hours and measure the fluid output separately from each drain. Please also strip each drain each time you empty it to prevent clogging. Keep a record of the output and bring this record with you each time you come to the office for postoperative care. A drain is ready to be removed when its output is 30 mL per 24 hours per drain for 2 consecutive days. Please call the office to inform our staff that you need to come in for drain removal. Medications: Take Toradol one pill by mouth every six hours as needed for pain. Follow-up: Call our office at to make a follow-up appointment in 10-14 days. Your doctor will call to discuss the pathology report with you as soon as it is available. Concerns: If you had a sentinel lymph node biopsy with your mastectomy, your urine may have a greenish discoloration. This is normal and will resolve as the blue dye slowly leaves your system. If you notice significant leakage around the drains , this is not normal. The drains may be clogged. Please call our office to come in immediately for the drains to be checked. Some bruising may occur and will go away over time. If you have a fever of 101.5 or greater, chills, redness at the incision site, excessive drainage from your wound or severe pain not relieved by pain medication, call your doctor. A physician is available 24 hours a day 7 days a week in addition to regular office hours. If problems arise after normal office hours please call the hospital at . Please call if you have any questions or concerns. Prescriptions: Ketorolac Tromethamine [Toradol 10 mg Tablet] 10 mg PO Q6HP PRN #20 tablet PRN Reason: Referrals: AYLA KIM MD [Primary Care Provider] - Discharge Diet: As Tolerated Report the Following to Your Physician Immediately: Increase in Pain, Fever over 101 Degrees, Unusual Bleeding, Redness, Drainage-Foul Smelling
[2018-07-31] MEDS ORDERED: KETOROLAC TROMETHAMINE 10 MG TABLET PO PRN (15:27)
[2018-07-31] MEDS ORDERED: FENTANYL CITRATE INJ/PF 100 MCG/2 ML AMPUL ONE (15:49)
[2018-07-31] MEDS ORDERED: ACETAMINOPHEN 1,000 MG/100 ML RTUPB IV ONE (15:49)
--- NOTE | 2018-07-31 15:58 | Operative Report ---
Operative Report DATE OF SURGERY: 07/31/18 PREOPERATIVE DIAGNOSIS: Invasive ductal right breast carcinoma POSTOPERATIVE DIAGNOSIS: Same OPERATION: 1. Ultrasound directed right breast lumpectomy with cavity margin excision. 2. Dual mapping sentinel lymph node biopsy x3 right axilla. 3. Drainage of lumpectomy site SURGEON: SHERITA RITCHIE 1ST RN DIGESTIVE: SASHA CARRILLO ANESTHESIA: GA TISSUE REMOVED OR ALTERED: Right breast lumpectomy; shave margins; sentinel lymph nodes x3 COMPLICATIONS: None ESTIMATED BLOOD LOSS: Minimal INTRAOPERATIVE FINDINGS: See below PROCEDURE: Patient was seen in the preop holding area after undergoing lymphoscintigraphy of the right breast. She is found to have areas of increased activity in the right axilla consistent with appropriate ipsilateral right axillary sentinel node migration. The patient was then taken to the main operating room where general anesthesia was induced. Right arm was abducted, and we proceeded with methylene blue injection into the right breast. 25-gauge needle was used, dilution of approximately 50%, 1.5 cc of the methylene blue was injected into the right breast, areole or border, intradermally, with a 25-gauge needle. Right breast was massaged. We now prepped the right breast and right axilla with Betadine and draped the area. Appropriate ultrasonographic instrumentation draped out as well. Surgical timeout and surgical planning again discussed. We proceeded with sentinel lymph node biopsy first. The area of increased activity in the right axilla was identified with the neoprobe. Skin was Brianda times 1% plain lidocaine. Approximately 3 cm incision was made in the low anterior lateral axilla. 3 sentinel lymph nodes were harvested all blue or hot and all low level 1. For sentinel lymph node had an in vivo count of 20,391 and an ex vivo count of 7001. The second hot blue lymph node in the same vicinity had an in vivo count of 2091 and an ex vivo count of 1412 and the third sentinel lymph node, blue and hot, had an in vivo count of 4150 and an ex vivo count of 8910. Background counts were negligible. Hemostasis was excellent. We felt the sentinel lymph node portion of the operation was complete We now turned our attention to the right breast. We used focused ultrasound to localize the tumor which was small, less than a centimeter, and the extreme lateral aspect of the right breast. Tumor which confirmed by its classic sonographic features, as well as presence of clip marker. The overlying skin was tested 1% plain lidocaine. A 4 cm incision was made overlying the skin in close proximity to the target tumor. A generous lumpectomy specimen was performed using electrocautery, blunt and dissection. Ultrasonographic monitoring was used to direct the dissection. Once specimen was out of the right breast, we confirmed presence of the tumor in the lateral inferior aspect of the specimen using ultrasonography. A long suture 2-0 silk was placed in the lateral position and a short suture in the superior position. We performed intraoperative x-ray on the portable x-ray machine with the specimen on a Kostas dish oriented in a fashion with the patient's body position. The target tumor and clip marker were in the 8 o'clock position of the lumpectomy specimen. The specimen was then handcarried by Dr. Ritchie to the pathology department where it was inked by Dr. Corbin. The specimen was then sliced vertically and we saw the tumor in the inferior lateral aspect of the lumpectomy specimen. The margins appeared grossly negative. I went back to the patient scrubbed in, and performed a shaved excision of the lumpectomy cavity the posterior posterior lateral and inferior wall. The specimen was marked similarly with a short suture in the superior position and a long suture in the lateral position. This was reviewed for orientation purposes with Dr. Corbin. This point felt the operation was complete. A large Mario drain was placed in the inferior skin flap, trimmed the appropriate length, attached to the skin with 2-0 Prolene suture. All wounds closed with 3-0 Vicryl, Dermabond glue. Of note at the conclusion of the operation patient developed a mild urticarial reaction on the skin surrounding the methylene blue dye injection site. No evidence of systemic allergic reaction. We elected to observe this area. Patient was taken to the recovery room after successful extubation. The physician virtual customer assistant, Ms. Perez, provided assistance during this case by: Assisting and port insertion, retracting tissue, instillation of local anesthesia and closure of skin incisions.
[2018-07-31] MEDS ORDERED: KETOROLAC TROMETHAMINE 10 MG TABLET ONE (16:36)
--- NOTE | 2018-07-31 17:11 | RADIOLOGY REPORT (SQ) ---
EXAM DESCRIPTION: BREAST SPECIMEN COMPLETED DATE/TIME: 07/31/2018 3:16 pm REASON FOR STUDY: BREAST SPECIMEN BX RT BREAST IN OR C50.911 MALIGNANT NEOPLASM OF UNSP SITE OF RIG HT FEMALE KEKE Z79.01 MCC (CURRENT) USE OF ANTICOAGULANTS COMPARISON: None. TECHNIQUE: Specimen radiograph from breast procedure performed in the operating room. LIMITATIONS: None. FINDINGS: Specimen radiograph from breast procedure performed in the operating room. A small mammo graphic nodule is present with adjacent biopsy clip. Please see procedure note for details and final pathology. IMPRESSION: Specimen radiograph. TECHNICAL DOCUMENTATION: JOB ID: [id number] Reading location - IP/workstation name: [email or web address]
[2018-07-31 18:02] VITALS: BP 165/81
== END 2018-07-31 17:45 | disposition home or self-care (01) ==
LOC: OROUT 09:55
PROVIDERS: ATTEND Surgery
DX: C50.811 Malignant neoplasm of overlapping sites of right female breast (principal); Z17.0 Estrogen receptor positive status [ER+]; E03.9 Hypothyroidism, unspecified; K21.9 Gastro-esophageal reflux disease without esophagitis; M19.90 Unspecified osteoarthritis, unspecified site; E66.3 Overweight; I10 Essential (primary) hypertension; F17.210 Nicotine dependence, cigarettes, uncomplicated; Z79.899 Other long term (current) drug therapy; Z88.2 Allergy status to sulfonamides; Z88.5 Allergy status to narcotic agent
CPT/HCPCS: 93005; 36415 ×2; 84132; 85027; 80048; 88342 ×2; 88305 ×2; 88307 ×2; 78195; 93010; 76098; 19307; A9520; J2250; J0690; J3490 ×4; J3010 ×2; J2370; J0330; A9270; J2704; J0131; Q9968; 1610

== ENCOUNTER → 2018-10-07 | Outpatient (CLI) | payer MEDICARE, OTHER ==
[2018-10-07 16:23] LABS: ABSOLUTE EOSINOPHILS # (AUTO) 0.1 10^3/uL (0.0-0.6); ABSOLUTE LYMPHOCYTES (AUTO) 1.3 10^3/uL (0.5-4.7); ABSOLUTE MONOCYTES (AUTO) 0.5 10^3/uL (0.1-1.4); ABSOLUTE NEUT (AUTO) 5.8 10^3/uL (1.7-8.2); BASOPHILS % (AUTO) 0.6 % (0-2); EOSINOPHILS % (AUTO) 0.9 % (0-6); HEMATOCRIT 41.4 % (36.0-47.0); HEMOGLOBIN 14.2 g/dL (12.0-15.5); MEAN CORPUSCULAR HEMOGLOBIN 29.9 pg (27.0-33.4); MEAN CORPUSCULAR HGB CONC 34.4 g/dL (32.0-36.0); MEAN CORPUSCULAR VOLUME 87 fl (80-97); MONOCYTES % (AUTO) 6.7 % (3-13); PLATELET COUNT 249 10^3/uL (150-450); RED BLOOD COUNT 4.77 10^6/uL (3.72-5.28); RED CELL DISTRIBUTION WIDTH 14.2 % (11.5-14.0); SEGMENTED NEUTROPHILS % (AUTO) 74.8 % (42-78); TOTAL CELLS COUNTED % (AUTO) 100 %; WHITE BLOOD COUNT 7.7 10^3/uL (4.0-10.5)
[2018-10-07 16:44] LABS: ALANINE AMINOTRANSFERASE 32 U/L (9-52); ALKALINE PHOSPHATASE 89 U/L (38-126); ASPARTATE AMINO TRANSFERASE 36 U/L (14-36); BILIRUBIN,DIRECT 0.2 mg/dL (0.0-0.4); BILIRUBIN,TOTAL 0.4 mg/dL (0.2-1.3); TOTAL PROTEIN 6.6 g/dL (6.3-8.2)
== END ==
LOC: OD 15:18
PROVIDERS: ATTEND Radiology Radiation Oncology
DX: C50.511 Malignant neoplasm of lower-outer quadrant of right female breast (principal); Z17.0 Estrogen receptor positive status [ER+]; Z79.899 Other long term (current) drug therapy
CPT/HCPCS: 36415; 80076; 85025

== ENCOUNTER → 2018-11-29 | Outpatient (CLI) | payer MEDICARE, OTHER ==
[2018-11-29 12:15] LABS: CHOLESTEROL 198.52 mg/dL (0-200); TRIGLYCERIDES 254 mg/dL (<150)
[2018-11-29 12:29] LABS: DIRECT LDL 115 mg/dL (<100)
[2018-11-29 12:35] LABS: FREE T3 2.82 pg/mL (2.77-5.27); FREE T4 (FREE THYROXINE) 1.08 ng/dL (0.78-2.19)
[2018-11-29 12:48] LABS: THYROID STIMULATING HORMONE 7.21 uIU/mL (0.47-4.68)
[2018-11-29 13:12] LABS: VLDL CHOLESTEROL 50.8 mg/dL (10-31)
== END ==
LOC: OD 11:10
PROVIDERS: ATTEND Family Medicine
DX: E78.5 Hyperlipidemia, unspecified (principal); E03.9 Hypothyroidism, unspecified; E53.8 Deficiency of other specified B group vitamins
CPT/HCPCS: 36415; 80061; 82607; 84439; 84443; 84481

== ENCOUNTER → 2019-05-09 | Outpatient (CLI) | payer MEDICARE, OTHER ==
[2019-05-09 15:07] LABS: ABSOLUTE EOSINOPHILS # (AUTO) 0.1 10^3/uL (0.0-0.6); ABSOLUTE LYMPHOCYTES (AUTO) 0.7 10^3/uL (0.5-4.7); ABSOLUTE MONOCYTES (AUTO) 0.5 10^3/uL (0.1-1.4); ABSOLUTE NEUT (AUTO) 5.7 10^3/uL (1.7-8.2); BASOPHILS % (AUTO) 0.5 % (0-2); EOSINOPHILS % (AUTO) 1.1 % (0-6); HEMATOCRIT 40.8 % (36.0-47.0); HEMOGLOBIN 14.1 g/dL (12.0-15.5); LYMPHOCYTES % (AUTO) 9.6 % (13-45); MEAN CORPUSCULAR HGB CONC 34.6 g/dL (32.0-36.0); MEAN CORPUSCULAR VOLUME 87 fl (80-97); MONOCYTES % (AUTO) 7.5 % (3-13); PLATELET COUNT 230 10^3/uL (150-450); SEGMENTED NEUTROPHILS % (AUTO) 81.3 % (42-78); TOTAL CELLS COUNTED % (AUTO) 100 %
[2019-05-09 15:21] LABS: ALANINE AMINOTRANSFERASE 48 U/L (9-52); ALBUMIN 4.2 g/dL (3.5-5.0); ALKALINE PHOSPHATASE 85 U/L (38-126); ANION GAP 10 (5-19); ASPARTATE AMINO TRANSFERASE 45 U/L (14-36); BILIRUBIN,DIRECT 0.4 mg/dL (0.0-0.4); BILIRUBIN,TOTAL 0.7 mg/dL (0.2-1.3); BLOOD UREA NITROGEN 12 mg/dL (7-20); CALCIUM 9.7 mg/dL (8.4-10.2); CARBON DIOXIDE 30 mmol/L (22-30); CHLORIDE 99 mmol/L (98-107); CHOLESTEROL 176.47 mg/dL (0-200); GLUCOSE 121 mg/dL (75-110); POTASSIUM 4.2 mmol/L (3.6-5.0); SODIUM 138.7 mmol/L (137-145); TRIGLYCERIDES 226 mg/dL (<150)
[2019-05-09 15:32] LABS: DIRECT LDL 103 mg/dL (<100)
[2019-05-09 15:34] LABS: VLDL CHOLESTEROL 45.2 mg/dL (10-31)
[2019-05-09 15:37] LABS: FREE T3 3.21 pg/mL (2.77-5.27); FREE T4 (FREE THYROXINE) 1.34 ng/dL (0.78-2.19)
[2019-05-09 15:51] LABS: THYROID STIMULATING HORMONE 1.95 uIU/mL (0.47-4.68)
== END ==
LOC: OD 13:48
PROVIDERS: ATTEND Family Medicine
DX: K22.70 Barrett's esophagus without dysplasia (principal); I10 Essential (primary) hypertension; E78.5 Hyperlipidemia, unspecified; E03.9 Hypothyroidism, unspecified
CPT/HCPCS: 36415; 80053; 80061; 84439; 84443; 84481; 85025

== ENCOUNTER → 2019-05-13 | Outpatient (CLI) | payer MEDICARE, OTHER ==
--- NOTE | 2019-05-13 16:54 | RADIOLOGY REPORT (SQ) ---
EXAM DESCRIPTION: CAROTID DOPPLER COMPLETED DATE/TIME: 05/13/2019 12:13 pm REASON FOR STUDY: UNSPECIFIED BACKGROUND RETINOPATHY H35.00 UNSPECIFIED BACKGROUND RETINOPATHY COMPARISON: None. TECHNIQUE: Grayscale ultrasound, Doppler velocity and spectra, and color Doppler images acquired of the extra-cranial carotid and vertebral arteries. Images stored on PACS. LIMITATIONS: None. FINDINGS: RIGHT CAROTID CCA Velocities: Within normal limits. ICA Velocities Peak systolic 36 cm/s. End diastolic 13 cm/s. Proximal ICA/CCA peak systolic ratio 1.0. Spectra normal. No significant plaque. LEFT CAROTID CCA Velocities: Within normal limits. ICA Velocities Peak systolic 88 cm/s. End diastolic 27 cm/s. Proximal ICA/CCA peak systolic ratio 1.64. Spectra normal. No significant plaque. VERTEBRAL ARTERIES: Antegrade flow. Normal waveforms. SUBCLAVIAN ARTERIES: No finding. OTHER: No other significant finding. IMPRESSION: NO HEMODYNAMICALLY SIGNIFICANT STENOSIS. COMMENT: Quality ID #[id number]: Velocity criteria are extrapolated from the diameter data as defined by t he Society of Radiologists in Ultrasound Consensus Conference. Radiology 2003: 229; 340-346. TECHNICAL DOCUMENTATION: JOB ID: [id number] [place]-72 2010 [employer]- All Rights Reserved Reading location - IP/workstation name: [email or web address]
== END ==
LOC: SP 11:15
PROVIDERS: ATTEND Family Medicine
DX: H35.00 Unspecified background retinopathy (principal)
CPT/HCPCS: 93880

== ENCOUNTER 2019-05-21 08:05 | Day surgery (SDC) | payer MEDICARE, OTHER ==
[2019-05-21] MEDS ORDERED: ONDANSETRON HCL INJ/PF 4 MG/2 ML SDV ONE (08:24)
[2019-05-21] MEDS ORDERED: DIPHENHYDRAMINE HCL 50 MG/ML VIAL ONE (08:24)
[2019-05-21] MEDS ORDERED: EPINEPHRINE INJ 1 MG/10 ML DISP.SYRIN ONE (08:25)
[2019-05-21] MEDS ORDERED: GLUCAGON,HUMAN RECOMB 1 MG INJ ONE (08:25)
[2019-05-21] MEDS ORDERED: MIDAZOLAM 2 MG/2 ML INJ ONE (08:25)
[2019-05-21] MEDS ORDERED: FLUMAZENIL INJ 0.5 MG/5 ML VIAL ONE (08:25)
[2019-05-21] MEDS ORDERED: NALOXONE HCL INJ/PF 0.4 MG/1 ML SDV ONE (08:25)
[2019-05-21] MEDS: FENTANYL CITRATE INJ/PF 100 MCG/2 ML AMPUL ONE ×2 (08:48→08:50)
--- NOTE | 2019-05-21 08:58 | Operative Report ---
Operative Report DATE OF SURGERY: 05/21/19 Operative Report: The risks benefits and alternatives of the procedure explained to the patient in detail and informed consent is obtained.A GIF Olympus video scope was inserted into the patient's mouth and hypopharynx, the esophagus is identified intubated and insufflated, the scope was then advanced through the esophagus stomach and duodenum, retroflexion maneuver is done, the esophagus stomach and first and second portions of the duodenum examined. PREOPERATIVE DIAGNOSIS: Dysphagia POSTOPERATIVE DIAGNOSIS: Esophagitis status post biopsy. Gastroparesis. Gastritis status post biopsy. Some areas of denuded duodenal mucosa status post biopsy OPERATION: EGD with biopsy SURGEON: ABHISHEK TOMPKINS ANESTHESIA: Moderate Sedation - 2 mg of Versed, 50 mcg of fentanyl. Conscious sedation monitoring time 30 minutes. TISSUE REMOVED OR ALTERED: As noted above. COMPLICATIONS: None. ESTIMATED BLOOD LOSS: None. INTRAOPERATIVE FINDINGS: As noted above. PROCEDURE: Patient tolerated the procedure well. No immediate postprocedure complications are noted. Patient is discharged in good condition. Discharge date 05/21/2019. Discharge diet: Regular. Discharge activity: Regular. 2 to 3-week follow-up to discuss findings. Patient is instructed to call the office or proceed to the emergency room should there be any further problems or questions. Wait on the pathology.
[2019-05-21 09:57] VITALS: BP 160/80
== END 2019-05-21 10:05 | disposition home or self-care (01) ==
LOC: END 08:05
PROVIDERS: ATTEND Internal Medicine Gastroenterology
DX: K29.50 Unspecified chronic gastritis without bleeding (principal); K21.0 Gastro-esophageal reflux disease with esophagitis; K31.84 Gastroparesis; E78.5 Hyperlipidemia, unspecified; E03.9 Hypothyroidism, unspecified; I10 Essential (primary) hypertension; Z79.899 Other long term (current) drug therapy
CPT/HCPCS: 43239; 88342 ×2; 88305 ×2; J2250; J3010; J0171; J1200; J1610; J2310; J2405; J3490

== ENCOUNTER → 2019-08-05 | Outpatient (CLI) | payer MEDICARE, OTHER ==
--- NOTE | 2019-08-06 08:41 | XCELERA REPORT ---
[address] [address] Lower Extremity Arterial Evaluation Name: CARRI BUSH Age: 79 yrs Gender: Female : 1940 Patient Status: Outpatient Patient Location: Study Date: 08/05/2019 01:46 PM Procedure: A color flow and duplex scan of the lower extremity arteries was performed bilaterally with velocity and waveform analysis. Ankle brachial indicies performed. Reason For Study: PAIN IN LEG Ordering Physician: AYLA KIM Performed By: Mariluz Singh Measurements and Calculations Right Left EDGE GLUER PSV 91.1 87.4 cm/sec Prox PFA PSV 64.6 45.2 cm/sec Prox SFA PSV 76.4 75.5 cm/sec Mid SFA PSV -77.7 -83.3 cm/sec Dist SFA PSV -76.0 -95.9 cm/sec Prox Pop A PSV 49.8 cm/sec Dist Pop A PSV -46.8 cm/sec Mid ZORAIDA PSV -49.8 43.3 cm/sec Mid [employer]LE [employer] OPERATOR PSV -60.2 44.7 cm/sec Abhilash Pedis PSV 48.9 53.1 cm/sec Right Side Arterial Evaluation Normal velocity and triphasic waveforms noted from the Common Femoral artery to the infrageniculat vessels.. Ankle Brachial index 1.00. Left Side Arterial Evaluation Normal velocity and triphasic waveforms noted from the Common Femoral artery to the infrageniculat vessels.. Ankle Brachial index 1.00. Interpretation Summary No hemodynamically significant lesions in the bilateral lower extremities, on duplex imaging, at rest. GALILEO's are normal, confirming duplex findings of no significant obstructive disease. : AYLA KIM > Oneal Ratliff
== END ==
LOC: SP 13:31
PROVIDERS: ATTEND Family Medicine
DX: M79.662 Pain in left lower leg (principal); M79.661 Pain in right lower leg
CPT/HCPCS: 93922; 93925

== ENCOUNTER → 2019-10-01 | Outpatient (CLI) | payer MEDICARE, OTHER ==
[2019-10-01 13:13] LABS: ABSOLUTE EOSINOPHILS # (AUTO) 0.1 10^3/uL (0.0-0.6); ABSOLUTE LYMPHOCYTES (AUTO) 0.6 10^3/uL (0.5-4.7); ABSOLUTE MONOCYTES (AUTO) 0.5 10^3/uL (0.1-1.4); ABSOLUTE NEUT (AUTO) 6.5 10^3/uL (1.7-8.2); BASOPHILS % (AUTO) 0.5 % (0-2); EOSINOPHILS % (AUTO) 0.7 % (0-6); HEMATOCRIT 39.6 % (36.0-47.0); HEMOGLOBIN 13.6 g/dL (12.0-15.5); MEAN CORPUSCULAR HEMOGLOBIN 30.5 pg (27.0-33.4); MEAN CORPUSCULAR HGB CONC 34.4 g/dL (32.0-36.0); MEAN CORPUSCULAR VOLUME 89 fl (80-97); MONOCYTES % (AUTO) 6.5 % (3-13); PLATELET COUNT 232 10^3/uL (150-450); RED BLOOD COUNT 4.47 10^6/uL (3.72-5.28); RED CELL DISTRIBUTION WIDTH 14.1 % (11.5-14.0); SEGMENTED NEUTROPHILS % (AUTO) 84.3 % (42-78); TOTAL CELLS COUNTED % (AUTO) 100 %; WHITE BLOOD COUNT 7.7 10^3/uL (4.0-10.5)
[2019-10-01 13:47] LABS: ALBUMIN 4.2 g/dL (3.5-5.0); ALKALINE PHOSPHATASE 76 U/L (38-126); ANION GAP 12 (5-19); ASPARTATE AMINO TRANSFERASE 31 U/L (14-36); BILIRUBIN,DIRECT 0.2 mg/dL (0.0-0.4); BILIRUBIN,TOTAL 0.5 mg/dL (0.2-1.3); BLOOD UREA NITROGEN 14 mg/dL (7-20); CALCIUM 9.8 mg/dL (8.4-10.2); CARBON DIOXIDE 28 mmol/L (22-30); CHLORIDE 99 mmol/L (98-107); CHOLESTEROL 156.32 mg/dL (0-200); GLUCOSE 96 mg/dL (75-110); POTASSIUM 4.3 mmol/L (3.6-5.0); TOTAL PROTEIN 7.1 g/dL (6.3-8.2); TRIGLYCERIDES 258 mg/dL (<150)
[2019-10-01 13:59] LABS: DIRECT LDL 84 mg/dL (<100)
[2019-10-01 14:34] LABS: VLDL CHOLESTEROL 51.6 mg/dL (10-31)
[2019-10-01 15:08] LABS: FREE T3 3.59 pg/mL (2.77-5.27); FREE T4 (FREE THYROXINE) 1.43 ng/dL (0.78-2.19)
[2019-10-01 15:22] LABS: THYROID STIMULATING HORMONE 1.75 uIU/mL (0.47-4.68)
== END ==
LOC: OD 12:20
PROVIDERS: ATTEND Family Medicine
DX: K22.70 Barrett's esophagus without dysplasia (principal); E78.5 Hyperlipidemia, unspecified; E03.9 Hypothyroidism, unspecified; E53.8 Deficiency of other specified B group vitamins; E55.9 Vitamin D deficiency, unspecified
CPT/HCPCS: 36415; 80053; 80061; 82306; 82607; 84439; 84443; 84481; 85025